=== PATIENT | female | born 1965 | race Caucasian/White ===

== ENCOUNTER 2021-01-11 17:04 | Outpatient (CLI) | payer BC, MEDICAID, SELFPAY ==
--- NOTE | ~2021-01-11 | MM_ITS ---
EXAMINATION: MM screening [facility] BI w [facility] HISTORY: Screening mammogram TECHNIQUE: Craniocaudal and mediolateral oblique 3-D tomosynthesis images were obtained and synthetic 2-D images were generated. CAD analysis was submitted and interpreted. COMPARISON: 09/22/2018, 09/07/2018 BREAST PARENCHYMAL COMPOSITION: There are scattered areas of fibroglandular density. FINDINGS: There is no evidence of suspicious mass, calcification, or architectural distortion to sugg est malignancy in either breast. There has been no suspicious interval change. IMPRESSION: 1. No mammographic evidence of malignancy. 2. Recommend routine screening mammography in one year. BI-RADS Category 1: Negative Reviewed, dictated and finalized at location A.
== END 2021-01-11 17:05 | disposition home or self-care (01) ==
PROVIDERS: PCP Family Medicine
DX: Z12.31 Encounter for screening mammogram for malignant neoplasm of breast (principal)
CPT/HCPCS: 77063; 77067

== ENCOUNTER → 2021-04-27 07:59 | Outpatient (CLI) | payer BC, MEDICAID, SELFPAY ==
[2021-04-27 19:27] LABS: SARS-CoV-2 RNA PCR Positive
== END ==
PROVIDERS: PCP Family Medicine; Visit Provider Family Medicine
DX: U07.1 COVID-19 (principal)
CPT/HCPCS: C9803; U0003; U0005

== ENCOUNTER 2021-04-29 22:29 | Inpatient (IN) | payer BC, MEDICAID, SELFPAY ==
--- NOTE | ~2021-04-29 | CT_ITS ---
EXAMINATION: CTA chest PE protocol EXAM DATE: 04/30/2021 00:46 INDICATION: COVID positive shortness of breath elevated d dimer. TECHNIQUE: Spiral CTA of the chest (pulmonary arteries) was performed with 100 cc Omnipaque 350 intr avenous contrast injection. Images were acquired during the pulmonary arterial phase. Coronal maxi mum intensity projection 3D-reconstructions were created by the technologist on dedicated workstation . Axial, coronal and sagittal reformatted images were reviewed. The dose-length product (DLP) for t his examination was 415.26 mGy-cm. The exposure was tailored according to patient size (auto mA exp osure control), and iterative reconstruction (ASIR) was used as additional dose reduction technique. There is no prior study for comparison. FINDINGS: There are no pulmonary emboli in the 1st through 3rd order (central and interlobar) pulmon [place] arteries. Some loss of attenuation in the segmental pulmonary arteries due to respiratory motion , but no intraluminal filling defects suspected. No thoracic aortic dissection. Scattered bilatera l groundglass opacities and basilar atelectasis. Appearance is consistent with COVID pneumonia. Ther e are no pleural or pericardial effusions. Tracheobronchial tree is patent. There is no mediastin al, hilar or axillary lymphadenopathy. There is no pneumothorax. Heart normal in size. No evide nce of coronary arterial calcification. Liver cysts. There is mild thoracic spondylosis without ost eoblastic or osteolytic lesions identified. IMPRESSION: 1. Limited segmental evaluation, but no pulmonary emboli are suspected. 2. Moderate right, small to moderate left airspace disease consistent with COVID pneumonia. Reviewed, dictated and finalized at location B. FARMER IMPRESSION: 1. Limited segmental evaluation, but no pulmonary emboli are suspected. 2. Moderate right, small to moderate left airspace disease consistent with COV ID pneumonia.
--- NOTE | ~2021-04-29 | XR_ITS ---
EXAMINATION: XR chest 1V portable DATE: 04/29/2021 23:04 INDICATION: COVID positive with shortness of breath TECHNIQUE: frontal view of the chest was obtained. COMPARISON: Chest radiograph dated 06/22/2010 FINDINGS: Mild airspace opacities scattered throughout both lungs relatively sparing the left upper lung zone w hich could represent atelectasis and/or pneumonia. No pleural effusion or pneumothorax. The cardiomed iastinal silhouette is normal. IMPRESSION: 1. Mild opacities scattered throughout both lungs consistent with atelectasis and/or pneumonia. Reviewed, dictated and finalized at location A. ASSET MANAGER IMPRESSION: 1. Mild opacities scattered throughout both lungs consistent with atelectasis a nd/or pneumonia.
[2021-04-29 22:35] VITALS: BP 123/80; PULSE 99; RESP 17; TEMP 36.9; O2SAT 93
[2021-04-29 22:43] VITALS: O2SAT 93
--- NOTE | 2021-04-29 22:47 | ECG_ITS ---
Measurements Intervals [place] Rate: 97 P: 50 [place]: 130 QRS: 21 QRSD: 82 T: -43 QT: 315 QTc: 401 Interpretive Statements SINUS RHYTHM LOW QRS VOLTAGE IN PRECORDIAL LEADS ST-T WAVE ABNORMALITY IN ANTEROLAT/INF LEADS- CONSIDER ISCHEMIA ABNORMAL ECG Electronically Signed On 04-30-2021 6:02:28 [employer]ACELET FORM COVERER by Jim Toney D.O.
[2021-04-29] MEDS: ALBUTEROL SULFATE (*SP) INHALER 2 PUFF INHALATION (22:55)
[2021-04-29] MEDS: ONDANSETRON INJ 4 MG/2 ML VIAL IV PUSH (23:17)
[2021-04-29] MEDS: KETOROLAC 30 MG/ML VIAL (*BKC) 15 MG IV PUSH (23:17)
[2021-04-29] MEDS: SODIUM CHLORIDE 0.9% IV 1,000 ML 999 ML IV CONT (23:17)
[2021-04-29 23:32] LABS: Basophils Percent Auto 0.1 % (0.2-1.2); Eosinophils Percent Auto 0.1 % (0-4.4); Hematocrit 43.1 % (37.0-47.0); Hemoglobin 13.7 g/dL (12.0-15.0); Immature Granulocyte Absolute 0.03 K/mm3 (0.00-0.031); Immature Granulocyte Percent A 0.4 % (0-0.5); Mean Corpuscular HGB Conc 31.8 g/dl (32-36); Mean Corpuscular Volume 88.1 fl (80-100); Mean Platelet Volume 9.3 fl (7.4-10.4); Monocytes Absolute Auto 0.3 K/mm3 (0.1-0.6); Monocytes Percent Auto 3.2 % (2.6-8.5); Neutrophils Percent Auto 82.2 % (45.5-73.1); Platelet Count Result 186 k/mm3 (150-375); Red Blood Count 4.89 M/mm3 (4.2-5.4); Red Cell Distribution Width 15.1 % (11.5-14.5); White Blood Count 8.6 K/mm3 (4.5-10.0)
[2021-04-29 23:42] LABS: Prothrombin Time 13.5 Seconds (11.1-14.7)
[2021-04-29 23:43] LABS: Partial Thromboplastin Time 25.2 SECONDS (22.3-36.8)
[2021-04-29 23:45] LABS: D Dimer 1.04 ug/mL (<0.48)
[2021-04-29 23:47] LABS: Lactic Acid Reflex 0.9 mmol/L (0.7-2.1)
[2021-04-29 23:48] LABS: Alanine Aminotransferase 20 U/L (4-35); Alkaline Phosphatase 66 U/L (38-126); Anion Gap 8 mmol/L (8-16); Aspartate Amino Transferase 32 U/L (14-36); Bilirubin,Total 0.4 mg/dL (0.2-1.3); Blood Urea Nitrogen 11 mg/dL (7-17); Calcium 8.3 mg/dL (8.4-10.2); Carbon Dioxide 27 mmol/L (22-30); Chloride 100 mmol/L (98-107); Estimated Glomerular Filt Rate > 60; Glucose 123 mg/dL (65-110); Potassium 3.1 mmol/L (3.4-5.0); Sodium 135 mmol/L (137-145)
[2021-04-30] VITALS (30 sets, daily range): BP systolic 103–125; BP diastolic 55–71; PULSE 73–97; RESP 14–20; TEMP 36.4–36.9; O2SAT 92–100
[2021-04-30 00:39] LABS: Troponin I < 0.012 ng/mL (0.000-0.034)
[2021-04-30] MEDS: DEXAMETHASONE SOD PHOS INJ 4 MG/ML VIAL IV PUSH (00:48)
--- NOTE | 2021-04-30 00:49 | ED.GENADULT ---
HPI - General Adult General Chief complaint: Chest Pain Stated complaint: SOB DIFF BREATHING, COVID+ Time Seen by Provider: 04/29/21 22:41 History of Present Illness HPI narrative: Patient 56-year-old female presents the emergency department with chief complaint of shortness of breath body aches and generalized malaise. The patient reports she was diagnosed with being Covid positive on the 10th after a swab. Patient reports that she has been having symptoms for about a week patient reports she is unvaccinated patient states that she feels short of breath is worse with ambulation and improved with rest. The patient was found to be 87% by EMS Related Data Allergies Allergy/AdvReac Type Severity Reaction Status Date / Time Penicillins Allergy Severe HIVES, Verified 04/29/21 22:43 RASH, DIFFICULTY BREATHING fentanyl Allergy Unknown ITCHING, Verified 04/29/21 22:43 DIFFICULTY BREATHING Review of Systems Review of Systems: A 10 system review of systems was completed on the patient and is negative except for what is stated in the HPI. Nursing and ancillary documentation was reviewed. Exam Narrative: GENERAL: Well-appearing, well-nourished, and in no acute distress. HEAD: Normocephalic, atraumatic. EYES: PERRLA and EOMI. ENT: Nares clear, no rhinorrhea or epistaxis. Mucous membranes moist. NECK: Supple. CHEST: Clear to auscultation. No respiratory distress. HEART: Regular rate and rhythm. No murmur heard. Normal peripheral pulses. ABDOMEN: Soft, nontender, nondistended, normal active bowel sounds. EXTREMITIES: Normal range of motion. No edema. SKIN: Warm, dry, no rash. NEURO: No focal deficits. Alert and oriented x3. PSYCH: Normal mood and affect. Course Course Emergency Course: EKG is sinus rhythm rate [address] elevation [address] ST depression of approximately 1 mm Chest x-ray shows diffuse patchy infiltrates consistent with Covid pneumonia CT PE protocol was ordered given the elevated D-dimer and hypoxia from COVID-19 The patient on ambulation is hypoxic with a saturation of 87% off of oxygen. Patient is currently requiring nasal cannula oxygen Vital Signs Vital signs: Vital Signs Temperature 36.9 C 04/29/21 22:35 Pulse Rate 99 04/29/21 22:35 Respiratory Rate 17 04/29/21 22:35 Blood Pressure 123/80 04/29/21 22:35 Pulse Oximetry 93 04/29/21 22:35 Temperature 36.9 C 04/29/21 22:35 Pulse Rate 99 04/29/21 22:35 Respiratory Rate 17 04/29/21 22:35 Blood Pressure 123/80 04/29/21 22:35 Pulse Oximetry 93 04/29/21 22:43 Medical Decision Making Vital Signs Vital Signs: Vital Signs Temperature 36.9 C 04/29/21 22:35 Pulse Rate 99 04/29/21 22:35 Respiratory Rate 17 04/29/21 22:35 Blood Pressure 123/80 04/29/21 22:35 Pulse Oximetry 93 04/29/21 22:35 Temperature 36.9 C 04/29/21 22:35 Pulse Rate 99 04/29/21 22:35 Respiratory Rate 17 04/29/21 22:35 Blood Pressure 123/80 04/29/21 22:35 Pulse Oximetry 93 04/29/21 22:43 Lab Data Result diagrams: 04/29/21 23:27 04/29/21 23:27 Labs: Lab Results 04/29/21 04/29/21 04/29/21 Range/Units 23:27 23:27 23:27 WBC 8.6 (4.5-10.0) K/mm3 RBC 4.89 (4.2-5.4) M/mm3 Hgb 13.7 (12.0-15.0) g/dL Hct 43.1 (37.0-47.0) % MCV 88.1 (80-100) fl MCH 28.0 (26-34) pg MCHC 31.8 L (32-36) g/dl RDW 15.1 H (11.5-14.5) % Plt Count 186 (150-375) k/mm3 MPV 9.3 (7.4-10.4) fl Immature Gran % (Auto) 0.4 (0-0.5) % Neut % (Auto) 82.2 H (45.5-73.1) % Lymph % (Auto) 14.0 L (18.3-44.2) % Benzie % (Auto) 3.2 (2.6-8.5) % Eos % (Auto) 0.1 (0-4.4) % Baso % (Auto) 0.1 L (0.2-1.2) % Lymph # (Auto) 1.20 (0.9-3.2) K/mm3 Benzie # (Auto) 0.3 (0.1-0.6) K/mm3 Eos # (Auto) 0.0 (0-0.3) K/mm3 Baso # (Auto) 0.0 (0.0-0.1) K/mm3 Abs Immat Gran (auto) 0.03 (0.00-0.031) K/mm3 Absolute Neuts (auto)
--- NOTE | 2021-04-30 00:53 | PM.IMHP ---
H&P: HPI History of Present Illness Date/Time: 04/30/21 00:53 Chief Complaint: SHORTNESS OF BREATH Narrative: This is a 56-year-old female with known significant past medical history. Patient presents to the emergency room today due to worsening shortness of breath she had been tested for COVID-19 3 days prior where she went to drive through by [facility] and she was called to confirm positives results. Patient had been feeling very ill with generalized body aches and pains ,chills ,loss of taste and smell, poor appetite, initially has some nausea, vomiting and diarrhea that has subsided, patient had also cough initially dry and now has turned out productive of greenish-colored phlegm scanty amount. Preliminary workup was significant for chest x-ray with diffuse bilateral infiltrates and CTA with infiltrates as well no pulmonary embolism was found. In emergency room patient was found to be desaturating with minimal exertion and decision was made to admit the patient for further evaluation, management and treatment. Review of Systems Review of Systems: Generalized body aches and pains my general malaise poor appetite loss of sense of taste and smell shortness of breath cough productive of green phlegm. Constitutional: Constitutional: Reports chills, Reports fatigue, Reports fever(s), Reports malaise and Reports poor appetite Eyes: Eyes: Denies change in vision ENT: Denies dysphagia, Denies vertigo, Denies dizziness, Denies nasal congestion, Denies nasal discharge, Denies nasal obstruction and Denies odynophagia Cardiovascular: Cardiovascular: Denies claudication, Denies leg edema, Denies lightheadedness, Denies radiating jaw, neck or arm pain, Denies palpitations, Denies dyspnea, Denies dyspnea on exertion and Denies orthopnea Respiratory: Respiratory: Reports change in phlegm color, Reports cough, Reports dyspnea and Denies wheezing Gastrointestinal: Gastrointestinal: Reports abdominal pain, Denies dyspepsia, Denies heartburn, Reports diarrhea, Reports nausea and Reports vomiting Genitourinary: Genitourinary: Denies dysuria and Denies flank pain Musculoskeletal: Musculoskeletal: Reports myalgias Integumentary/Breasts: Skin/Breast: Denies rash Neurologic: Denies focal weakness and Denies Sensory deficit (Neuro) Psychiatric: Psychiatric: Reports no additional psychiatric complaints and Reports as per HPI Endocrine: Endocrine: Denies polyphagia, Denies polydipsia and Denies palpitations Hematologic/Lymphatic: Hematologic/Lymphatic: Reports no additional hematologic/lymphatic complaints and Reports as per HPI Allergic/Immunologic: Allergic/Immunologic: Reports no additional allergic/immunologic complaints and Reports as per HPI Meds Home Medications and Allergies Allergies Allergy/AdvReac Type Severity Reaction Status Date / Time Penicillins Allergy Severe HIVES, Verified 04/29/21 22:43 RASH, DIFFICULTY BREATHING fentanyl Allergy Unknown ITCHING, Verified 04/29/21 22:43 DIFFICULTY BREATHING Vital Signs Vital Signs - 24 hr 04/29/21 22:35 04/29/21 22:43 Temperature 98.4 F Pulse Rate 99 Respiratory Rate 17 Blood Pressure 123/80 Pulse Oximetry 93 93 Exam Narrative: Patient is laying in gurney Const: General: cooperative, comfortable, no acute distress, well developed, alert, awake and ill appearing acutely Nutritional Appearance: overweight Orientation/consciousness: patient oriented x3 HENMT: Head: normal to inspection, normocephalic and atraumatic Ears: hearing grossly normal bilaterally General nose exam: Normal external nose present Face and sinus: normal facial exam Mouth: Yes Normal oral and palatal mucosa present Eyes: General: appearance normal, both eyes and all related structures Alignment and Position: alignment normal Sclera: sclerae normal Pupils: Equal, round and reactive pupils present EOM: EOMs intact bilaterally Neck: Neck: normal visual inspection, ful
[2021-04-30] MEDS: REMDESIVIR 200 MG/NS 250 ML 200 MG/250 ML BAG 250 MG IVPB (05:49)
[2021-04-30 05:53] LABS: Alanine Aminotransferase 19 U/L (4-35); Estimated Glomerular Filt Rate > 60; Prothrombin Time 13.4 Seconds (11.1-14.7)
[2021-04-30] MEDS: ENOXAPARIN 40 MG/0.4 ML SYRINGE SUB-Q (07:52)
[2021-04-30] MEDS: DEXAMETHASONE SOD PHOS INJ 4 MG/ML VIAL 6 MG IV PUSH (07:52)
--- NOTE | 2021-04-30 09:04 | PC.NURSE ---
Pt arrived to room 321 from ER per w/c.
[2021-04-30 09:24] LABS: Hematocrit 42.1 % (37.0-47.0); Hemoglobin 13.3 g/dL (12.0-15.0); Mean Corpuscular HGB Conc 31.6 g/dl (32-36); Mean Corpuscular Hemoglobin 28.2 pg (26-34); Mean Corpuscular Volume 89.2 fl (80-100); Mean Platelet Volume 9.6 fl (7.4-10.4); Platelet Count Result 195 k/mm3 (150-375); Red Blood Count 4.72 M/mm3 (4.2-5.4); Red Cell Distribution Width 15.1 % (11.5-14.5); White Blood Count 6.3 K/mm3 (4.5-10.0)
[2021-04-30 09:36] LABS: Alanine Aminotransferase 19 U/L (4-35); Albumin Level 3.8 g/dL (3.5-5.1); Alkaline Phosphatase 64 U/L (38-126); Anion Gap 7 mmol/L (8-16); Aspartate Amino Transferase 31 U/L (14-36); Bilirubin,Total 0.3 mg/dL (0.2-1.3); Blood Urea Nitrogen 10 mg/dL (7-17); Calcium 8.3 mg/dL (8.4-10.2); Carbon Dioxide 29 mmol/L (22-30); Chloride 101 mmol/L (98-107); Estimated Glomerular Filt Rate > 60; Glucose 133 mg/dL (65-110); Potassium 3.7 mmol/L (3.4-5.0); Sodium 137 mmol/L (137-145)
[2021-04-30] MEDS: ALBUTEROL SULFATE (*SP) AEROSOL 1 PUFF 4 PUFF INHALATION (09:58)
--- NOTE | 2021-04-30 10:19 | PM.IMPN ---
Progress Note: A&P Assessment and Plan (1) Respiratory failure: Qualifiers: Chronicity: acute Respiratory failure complication: hypoxia Qualified Code(s): J96.01 - Acute respiratory failure with hypoxia Code(s): J96.90 - Respiratory failure, unspecified, unspecified whether with hypoxia or hypercapnia Status: Acute Assessment and Plan: Acute respiratory failure with hypoxia secondary to COVID-19 pneumonia. Noted to have O2 sat of 86% on room air, requiring up to 6 L per nasal cannula initially. CTA negative for PE with bilateral airspace disease consistent with COVID-19 pneumonia Continue supplemental O2 as needed with goal saturation 92% or above. Currently requiring 2 L per nasal cannula and maintaining adequate O2 sats. Wean to goal. Treatment for COVID-19 as described below (2) Pneumonia due to COVID-19 virus: Code(s): U07.1 - COVID-19; J12.82 - Pneumonia due to coronavirus disease 2018 Status: Acute Assessment and Plan: Symptom onset 04/23/2021, positive test on 04/27/2021. CXR shows scattered bilateral opacities consistent with pneumonia. Continue dexamethasone and remdesivir, started on 04/29/2021. Dose #2 today. Monitor liver enzymes while on remdesivir. ALT is within normal limits. Supplemental O2 as described above with O2 sats 92% or above. At this time, will discontinue azithromycin as source of infection is viral in etiology, concomitant bacterial pneumonia is not suspected at this time. Supportive care to include bronchodilators, expectorants, antipyretics, incentive spirometry Trend inflammatory markers She has not been vaccinated for COVID-19 Continue isolation precautions (3) Asthma: Code(s): J45.909 - Unspecified asthma, uncomplicated Status: Acute Assessment and Plan: Reports that asthma is well controlled. Continue Advair Albuterol available as needed Subjective Date/time seen: 04/30/21 10:19 Interval history: Date of service: 04/30/2021 Bobbi Weber is a 56-year-old female with a history of asthma and depression who is seen in follow-up for COVID-19 pneumonia. She tested positive [facility]through service on 04/27/2021, stated her symptoms started on 04/23/2021. She has been having worsened shortness of breath and endorses dyspnea on exertion. She also complains of of productive cough. Denies wheezing. No chest pain or palpitations. She had been having nausea and vomiting, this has improved today. She states that she was able to tolerate her breakfast today and this is the first meal she has been able to keep down. She denies diarrhea. No abdominal pain but reports sore abdominal muscles related to frequent coughing. Denies urinary symptoms. Denies dizziness, lightheadedness, weakness. Denies leg pain or swelling. Review of Systems Review of Systems: All systems reviewed & are unremarkable except as noted in HPI and below Exam Narrative: Ms. Weber is a well-nourished, well-appearing 56-year-old female who is lying semi recumbent in bed. She appears comfortable and is in NARD. Neuro: awake, alert and oriented x4, speech clear, no focal neuro deficits noted HEENMT: normocephalic, atraumatic, EOMI, sclerae anicteric, moist oral mucosa Neck: supple, no lymphadenopathy Respiratory: Diminished breath sounds bilaterally without rales, rhonchi, or wheezes, nonlabored breathing, able to speak in complete sentences Cardio: regular rate, regular rhythm with S1-S2 Abdomen: nondistended, normoactive bowel sounds, soft, nontender to palpation Extremities: no edema, erythema, or tenderness to palpation, DP pulses 2+ bilaterally Skin: no rashes or lesions, warm and dry Psych: appropriate mood and affect, judgment and insight intact Objective Data Vital Signs Vital Signs: Vital Signs - 24 hr 04/29/21 22:35 04/29/21 22:43 04/30/21 00:24 Temperature 98.4 F Pulse Rate 99 87 Respiratory Rate 17 18 B
[2021-04-30] MEDS: ACETAMINOPHEN 325 MG TABLET 650 MG PO (11:24)
--- NOTE | 2021-04-30 12:37 | PHAR ---
Addendum entered by Willam Em [facility] 05/01/21 13:02: PHARMACY VERIFIED NEW BOTTLE BROUGHT IN OF DESVENLAFAXINE SUCCINATE 50 MG TABLET EXTENDED RELEASE 24 HR Original Note: The patient's home med of Desvenlafaxine Succinate 50 mg Tablet Extended Release 24 Hr has been verified. One tablet only in prescription bottle.
[2021-04-30] MEDS: ALBUTEROL SULFATE (*SP) AEROSOL 1 PUFF 2 PUFF INHALATION ×2 (15:43→20:39)
[2021-04-30] MEDS: REMDESIVIR 100 MG/NS 250 ML 100 MG/250 ML BAG 250 MG IVPB (23:26)
[2021-05-01] VITALS (8 sets, daily range): BP systolic 100–114; BP diastolic 46–67; PULSE 70–76; RESP 16–20; TEMP 36.1–37.3; O2SAT 93–98
[2021-05-01] MEDS: ACETAMINOPHEN 325 MG TABLET 650 MG PO (01:55)
[2021-05-01] MEDS: ALBUTEROL SULFATE (*SP) AEROSOL 1 PUFF 2 PUFF INHALATION ×3 (02:12→20:13)
[2021-05-01 03:32] LABS: Troponin I < 0.012 ng/mL (0.000-0.034)
[2021-05-01 06:26] LABS: Hematocrit 38.7 % (37.0-47.0); Hemoglobin 12.5 g/dL (12.0-15.0); Mean Corpuscular HGB Conc 32.3 g/dl (32-36); Mean Corpuscular Hemoglobin 28.3 pg (26-34); Mean Corpuscular Volume 87.8 fl (80-100); Mean Platelet Volume 9.5 fl (7.4-10.4); Platelet Count Result 208 k/mm3 (150-375); Red Blood Count 4.41 M/mm3 (4.2-5.4); Red Cell Distribution Width 15.1 % (11.5-14.5); White Blood Count 9.2 K/mm3 (4.5-10.0)
[2021-05-01 06:44] LABS: Alanine Aminotransferase 20 U/L (4-35); Albumin Level 3.5 g/dL (3.5-5.1); Alkaline Phosphatase 55 U/L (38-126); Anion Gap 6 mmol/L (8-16); Aspartate Amino Transferase 30 U/L (14-36); Bilirubin,Total 0.2 mg/dL (0.2-1.3); Blood Urea Nitrogen 14 mg/dL (7-17); CRP 3.9 mg/dL (<1.0); Calcium 8.6 mg/dL (8.4-10.2); Carbon Dioxide 31 mmol/L (22-30); Chloride 101 mmol/L (98-107); Estimated Glomerular Filt Rate > 60; Glucose 101 mg/dL (65-110); Lactate Dehydrogenase 579 U/L (313-618); Potassium 3.5 mmol/L (3.4-5.0); Sodium 138 mmol/L (137-145)
[2021-05-01 07:07] LABS: INR 1.2; Prothrombin Time 15.2 Seconds (11.1-14.7)
[2021-05-01] MEDS: FLUTICASONE/SALMETEROL 45-21 MCG INHALER 1 PUFF 2 PUFF INHALATION (08:36)
[2021-05-01] MEDS: DEXAMETHASONE SOD PHOS INJ 4 MG/ML VIAL 6 MG IV PUSH (10:07)
[2021-05-01] MEDS: ENOXAPARIN 40 MG/0.4 ML SYRINGE SUB-Q (10:08)
--- NOTE | 2021-05-01 11:25 | PM.IMPN ---
Progress Note: A&P Assessment and Plan (1) Respiratory failure: Qualifiers: Chronicity: acute Respiratory failure complication: hypoxia Qualified Code(s): J96.01 - Acute respiratory failure with hypoxia Code(s): J96.90 - Respiratory failure, unspecified, unspecified whether with hypoxia or hypercapnia Status: Acute Assessment and Plan: Acute respiratory failure with hypoxia secondary to COVID-19 pneumonia. Noted to have O2 sat of 86% on room air, requiring up to 6 L per nasal cannula initially. CTA negative for PE with bilateral airspace disease consistent with COVID-19 pneumonia Continue supplemental O2 as needed with goal saturation 92% or above. Currently requiring 2 L per nasal cannula and maintaining adequate O2 sats. Wean to goal. Treatment for COVID-19 as described below Will need home O2 eval prior to discharge (2) Pneumonia due to COVID-19 virus: Code(s): U07.1 - COVID-19; J12.82 - Pneumonia due to coronavirus disease 2018 Status: Acute Assessment and Plan: Symptom onset 04/23/2021, positive test on 04/27/2021. CXR shows scattered bilateral opacities consistent with pneumonia. Continue dexamethasone and remdesivir, started on 04/29/2021. Dose #3 today. Monitor liver enzymes while on remdesivir. ALT is within normal limits (20). Supplemental O2 as described above with O2 sats 92% or above. Supportive care to include bronchodilators, expectorants, antipyretics, incentive spirometry Trend inflammatory markers She has not been vaccinated for COVID-19 Continue isolation precautions (3) Asthma: Code(s): J45.909 - Unspecified asthma, uncomplicated Status: Acute Assessment and Plan: Reports that asthma is well controlled. Continue Advair Albuterol available as needed Subjective Date/time seen: 05/01/21 11:25 Interval history: Date of service: 05/01/2021 Bobbi Weber is a 56-year-old female with a history of asthma and depression who is seen in follow-up for COVID-19 pneumonia. She is feeling about the same today. Continues to endorse some mild shortness of breath and persistent cough. She complains of low back pain that seems to be worsened due to lying in bed. She also has had some episodes of feeling anxious today, which she relates to being in the hospital. She denies nausea or vomiting. She is eating well. She would like to take a shower today. She reports some abdominal discomfort which she says is because she has not had a bowel movement. She feels like she needs to go today, and states that if she is not able to go, she would like to take some medication to help her have a bowel movement. She denies dizziness or lightheadedness. She is able to get up and ambulate independently. Review of Systems Review of Systems: All systems reviewed & are unremarkable except as noted in HPI and below Exam Narrative: Ms. Weber is a well-nourished, well-appearing 56-year-old female who is lying semi recumbent in bed. She appears comfortable and is in NARD. Neuro: awake, alert and oriented x4, speech clear, no focal neuro deficits noted HEENMT: normocephalic, atraumatic, EOMI, sclerae anicteric, moist oral mucosa Neck: supple, no lymphadenopathy Respiratory: Diminished breath sounds bilaterally without crackles, wheezes, rhonchi, nonlabored breathing, able to speak in complete sentences Cardio: regular rate, regular rhythm with S1-S2 Abdomen: nondistended, normoactive bowel sounds, soft, nontender to palpation Extremities: no edema, erythema, or tenderness to palpation, DP pulses 2+ bilaterally Skin: no rashes or lesions, warm and dry Psych: appropriate mood and affect, judgment and insight intact Objective Data Vital Signs Vital Signs: Vital Signs - 24 hr 04/30/21 11:48 04/30/21 15:44 04/30/21 15:52 Temperature 98.1 F 98.1 F Pulse Rate 78 78 81 Respiratory Rate 14 18 14 Blood Pressure 115/62 119/58 L Puls
[2021-05-01] MEDS: REMDESIVIR 100 MG/NS 250 ML 100 MG/250 ML BAG 250 MG IVPB (21:02)
[2021-05-02] VITALS (9 sets, daily range): BP systolic 105–127; BP diastolic 55–71; PULSE 64–82; RESP 16–18; TEMP 36.3–37.8; O2SAT 93–95
[2021-05-02] MEDS: ALBUTEROL SULFATE (*SP) AEROSOL 1 PUFF 2 PUFF INHALATION ×4 (01:55→20:39)
[2021-05-02 08:36] LABS: Hematocrit 38.8 % (37.0-47.0); Hemoglobin 12.2 g/dL (12.0-15.0); Mean Corpuscular HGB Conc 31.4 g/dl (32-36); Mean Corpuscular Hemoglobin 27.6 pg (26-34); Mean Corpuscular Volume 87.8 fl (80-100); Mean Platelet Volume 9.6 fl (7.4-10.4); Platelet Count Result 233 k/mm3 (150-375); Red Blood Count 4.42 M/mm3 (4.2-5.4); Red Cell Distribution Width 15.3 % (11.5-14.5); White Blood Count 5.9 K/mm3 (4.5-10.0)
[2021-05-02 08:44] LABS: INR 1.2; Prothrombin Time 14.8 Seconds (11.1-14.7)
[2021-05-02 09:09] LABS: Alanine Aminotransferase 18 U/L (4-35); Albumin Level 3.3 g/dL (3.5-5.1); Alkaline Phosphatase 50 U/L (38-126); Anion Gap 5 mmol/L (8-16); Aspartate Amino Transferase 30 U/L (14-36); Bilirubin,Total 0.3 mg/dL (0.2-1.3); Blood Urea Nitrogen 13 mg/dL (7-17); CRP 2.1 mg/dL (<1.0); Calcium 8.3 mg/dL (8.4-10.2); Carbon Dioxide 31 mmol/L (22-30); Chloride 102 mmol/L (98-107); Estimated Glomerular Filt Rate > 60; Glucose 86 mg/dL (65-110); Potassium 3.3 mmol/L (3.4-5.0); Sodium 138 mmol/L (137-145)
[2021-05-02] MEDS: ENOXAPARIN 40 MG/0.4 ML SYRINGE SUB-Q (09:47)
[2021-05-02] MEDS: DEXAMETHASONE SOD PHOS INJ 4 MG/ML VIAL 6 MG IV PUSH (09:47)
[2021-05-02] MEDS: POTASSIUM CHLORIDE 20 MEQ TABLET 40 MEQ PO (09:48)
[2021-05-02] MEDS: ACETAMINOPHEN 325 MG TABLET 650 MG PO (13:37)
--- NOTE | 2021-05-02 17:18 | PM.IMPN ---
Progress Note: A&P Assessment and Plan (1) Respiratory failure: Qualifiers: Chronicity: acute Respiratory failure complication: hypoxia Qualified Code(s): J96.01 - Acute respiratory failure with hypoxia Code(s): J96.90 - Respiratory failure, unspecified, unspecified whether with hypoxia or hypercapnia Status: Acute Assessment and Plan: Acute respiratory failure with hypoxia secondary to COVID-19 pneumonia. Noted to have O2 sat of 86% on room air, requiring up to 6 L per nasal cannula initially. CTA negative for PE with bilateral airspace disease consistent with COVID-19 pneumonia Continue supplemental O2 as needed with goal saturation 92% or above. Currently requiring 1 L per nasal cannula and maintaining adequate O2 sats. Wean to goal. Treatment for COVID-19 as described below Will need home O2 eval prior to discharge (2) Pneumonia due to COVID-19 virus: Code(s): U07.1 - COVID-19; J12.82 - Pneumonia due to coronavirus disease 2018 Status: Acute Assessment and Plan: Symptom onset 04/23/2021, positive test on 04/27/2021. CXR shows scattered bilateral opacities consistent with pneumonia. Continue dexamethasone and remdesivir, started on 04/29/2021. Dose #4 today. Monitor liver enzymes while on remdesivir. ALT is within normal limits (18). Supplemental O2 as described above with O2 sats 92% or above. Supportive care to include bronchodilators, expectorants, antipyretics, incentive spirometry Trend inflammatory markers She has not been vaccinated for COVID-19 Continue isolation precautions (3) Asthma: Code(s): J45.909 - Unspecified asthma, uncomplicated Status: Acute Assessment and Plan: Reports that asthma is well controlled. Continue Advair Albuterol available as needed (4) Constipation: Code(s): K59.00 - Constipation, unspecified Status: Acute Assessment and Plan: -colace and miralax prn Subjective Date/time seen: 05/02/21 17:18 Interval history: Date of service: 05/01/2021 Bobbi Weber is a 56-year-old female with a history of asthma and depression who is seen in follow-up for COVID-19 pneumonia. She is feeling a little better today. She is down to 1L NC and denies sob. Continues with productive cough w/ clear and yellow phlegm. Also reports constipation. No cp. Review of Systems Review of Systems: General: Denies fevers, chills Eyes: Denies vision changes or eye pain ENT: Denies nasal congestion or sore throat Respiratory: + cough, denies shortness of breath Cardiovascular: Denies chest pain, palpitations, or lower extremity edema Gastrointestinal: Denies abdominal pain, vomiting, or diarrhea, +constipation Genitourinary: Denies dysuria or urinary frequency Musculoskeletal: + back pain Neurological: Denies headache, paraesthesias, or motor weakness Integumentary: Denies rash Exam Narrative: Ms. Weber is a well-nourished, well-appearing 56-year-old female who is lying semi recumbent in bed. She appears comfortable and is in NARD. Neuro: awake, alert and oriented x4, speech clear, no focal neuro deficits noted HEENMT: normocephalic, atraumatic, EOMI, sclerae anicteric, moist oral mucosa Neck: supple, no lymphadenopathy Respiratory: Diminished breath sounds bilaterally without crackles, wheezes, rhonchi, nonlabored breathing, able to speak in complete sentences Cardio: regular rate, regular rhythm with S1-S2 Abdomen: nondistended, normoactive bowel sounds, soft, nontender to palpation Extremities: no edema, erythema, or tenderness to palpation, DP pulses 2+ bilaterally Skin: no rashes or lesions, warm and dry Psych: appropriate mood and affect, judgment and insight intact Objective Data Vital Signs Vital Signs: Vital Signs - 24 hr 05/01/21 20:00 05/02/21 00:00 05/02/21 04:00 Temperature 98.1 F 97.8 F 97.3 F L Pulse Rate 70 66 66 Respiratory Rate 16 18 18 Blood Pre
[2021-05-02] MEDS: FLUTICASONE/SALMETEROL 45-21 MCG INHALER 1 PUFF 2 PUFF INHALATION (20:39)
[2021-05-02] MEDS: REMDESIVIR 100 MG/NS 250 ML 100 MG/250 ML BAG 250 MG IVPB (21:28)
[2021-05-02] MEDS: DOCUSATE SODIUM 100 MG CAPSULE PO (21:29)
[2021-05-03] VITALS (9 sets, daily range): BP systolic 103–126; BP diastolic 56–71; PULSE 63–77; RESP 16–18; TEMP 36.1–36.7; O2SAT 93–96
[2021-05-03] MEDS: ALBUTEROL SULFATE (*SP) AEROSOL 1 PUFF 2 PUFF INHALATION ×5 (03:25→21:30)
[2021-05-03] MEDS: FLUTICASONE/SALMETEROL 45-21 MCG INHALER 1 PUFF 2 PUFF INHALATION (08:21)
[2021-05-03 08:45] LABS: Basophils Percent Auto 0.2 % (0.2-1.2); Eosinophils Percent Auto 0.2 % (0-4.4); Hematocrit 38.2 % (37.0-47.0); Hemoglobin 12.1 g/dL (12.0-15.0); Immature Granulocyte Absolute 0.03 K/mm3 (0.00-0.031); Immature Granulocyte Percent A 0.5 % (0-0.5); Lymphocytes Absolute Auto 2.64 K/mm3 (0.9-3.2); Lymphocytes Percent Auto 40.4 % (18.3-44.2); Mean Corpuscular HGB Conc 31.7 g/dl (32-36); Mean Corpuscular Hemoglobin 27.8 pg (26-34); Mean Corpuscular Volume 87.6 fl (80-100); Mean Platelet Volume 9.1 fl (7.4-10.4); Monocytes Absolute Auto 0.4 K/mm3 (0.1-0.6); Monocytes Percent Auto 6.6 % (2.6-8.5); Neutrophils Absolute Auto 3.4 K/mm3 (1.3-6.7); Neutrophils Percent Auto 52.1 % (45.5-73.1); Platelet Count Result 261 k/mm3 (150-375); Red Blood Count 4.36 M/mm3 (4.2-5.4); Red Cell Distribution Width 14.9 % (11.5-14.5); White Blood Count 6.5 K/mm3 (4.5-10.0)
[2021-05-03 09:02] LABS: INR 1.3; Prothrombin Time 15.8 Seconds (11.1-14.7)
[2021-05-03 09:06] LABS: Alanine Aminotransferase 21 U/L (4-35); Albumin Level 3.3 g/dL (3.5-5.1); Alkaline Phosphatase 49 U/L (38-126); Anion Gap 3 mmol/L (8-16); Aspartate Amino Transferase 27 U/L (14-36); Bilirubin,Total 0.2 mg/dL (0.2-1.3); Blood Urea Nitrogen 12 mg/dL (7-17); CRP 1.1 mg/dL (<1.0); Calcium 8.3 mg/dL (8.4-10.2); Carbon Dioxide 31 mmol/L (22-30); Chloride 103 mmol/L (98-107); Estimated Glomerular Filt Rate > 60; Glucose 103 mg/dL (65-110); Potassium 3.1 mmol/L (3.4-5.0); Sodium 137 mmol/L (137-145)
[2021-05-03] MEDS: DOCUSATE SODIUM 100 MG CAPSULE PO (10:21)
[2021-05-03] MEDS: DEXAMETHASONE SOD PHOS INJ 4 MG/ML VIAL 6 MG IV PUSH (10:21)
[2021-05-03] MEDS: ENOXAPARIN 40 MG/0.4 ML SYRINGE SUB-Q (10:22)
--- NOTE | 2021-05-03 14:58 | PM.IMPN ---
Progress Note: A&P Assessment and Plan (1) Respiratory failure: Qualifiers: Chronicity: acute Respiratory failure complication: hypoxia Qualified Code(s): J96.01 - Acute respiratory failure with hypoxia Code(s): J96.90 - Respiratory failure, unspecified, unspecified whether with hypoxia or hypercapnia Status: Acute Assessment and Plan: Acute respiratory failure with hypoxia secondary to COVID-19 pneumonia. Noted to have O2 sat of 86% on room air, requiring up to 6 L per nasal cannula initially. CTA negative for PE with bilateral airspace disease consistent with COVID-19 pneumonia Continue supplemental O2 as needed with goal saturation 92% or above. Currently requiring 1 L per nasal cannula and maintaining adequate O2 sats. Wean to goal. Treatment for COVID-19 as described below Will need home O2 eval prior to discharge (2) Pneumonia due to COVID-19 virus: Code(s): U07.1 - COVID-19; J12.82 - Pneumonia due to coronavirus disease 2018 Status: Acute Assessment and Plan: Symptom onset 04/23/2021, positive test on 04/27/2021. CXR shows scattered bilateral opacities consistent with pneumonia. Completed remdesivir, started on 04/29/2021. Dose #5 today. Continue dexamethasone Supplemental O2 as described above with O2 sats 92% or above. Supportive care to include bronchodilators, expectorants, antipyretics, incentive spirometry Trend inflammatory markers She has not been vaccinated for COVID-19 Continue isolation precautions (3) Asthma: Code(s): J45.909 - Unspecified asthma, uncomplicated Status: Acute Assessment and Plan: Reports that asthma is well controlled. Continue Advair Albuterol available as needed (4) Constipation: Code(s): K59.00 - Constipation, unspecified Status: Acute Assessment and Plan: -colace and miralax prn Subjective Date/time seen: 05/03/21 14:58 Interval history: Date of service: 05/01/2021 Bobbi Weber is a 56-year-old female with a history of asthma and depression who is seen in follow-up for COVID-19 pneumonia. She is feeling pretty good today. She is down to 1L NC and denies sob. Continues with productive cough w/ clear and yellow phlegm, some brown tinge. Talking seems to spark her coughing fits. Also reports constipation. No cp. Review of Systems Review of Systems: General: Denies fevers, chills Eyes: Denies vision changes or eye pain ENT: Denies nasal congestion or sore throat Respiratory: + cough, denies shortness of breath Cardiovascular: Denies chest pain, palpitations, or lower extremity edema Gastrointestinal: Denies abdominal pain, vomiting, or diarrhea, +constipation Genitourinary: Denies dysuria or urinary frequency Musculoskeletal: + back pain Neurological: Denies headache, paraesthesias, or motor weakness Integumentary: Denies rash Psychiatric: +anxiety Exam Narrative: Ms. Weber is a well-nourished, well-appearing 56-year-old female who is lying semi recumbent in bed. She appears comfortable and is in NARD. Neuro: awake, alert and oriented x4, speech clear, no focal neuro deficits noted HEENT: normocephalic, atraumatic, sclerae anicteric, moist oral mucosa Neck: supple, no lymphadenopathy Respiratory: Diminished breath sounds bilaterally without crackles, wheezes, rhonchi, nonlabored breathing, able to speak in complete sentences Cardio: regular rate, regular rhythm with S1-S2 Abdomen: nondistended, normoactive bowel sounds, soft, nontender to palpation Extremities: no edema, erythema, or tenderness to palpation, DP pulses 2+ bilaterally Skin: no rashes or lesions, warm and dry Psych: appropriate mood and affect, judgment and insight intact Objective Data Vital Signs Vital Signs: Vital Signs - 24 hr 05/02/21 16:00 05/02/21 20:00 05/03/21 00:00 Temperature 97.9 F 98.4 F 97.8 F Pulse Rate 82 69 66 Respiratory Rate 18 18 18 Blood Press
[2021-05-04] VITALS (7 sets, daily range): BP systolic 95–120; BP diastolic 50–68; PULSE 66–85; RESP 14–22; TEMP 36.2–36.6; O2SAT 94–96
[2021-05-04] MEDS: REMDESIVIR 100 MG/NS 250 ML 100 MG/250 ML BAG 250 MG IVPB (02:18)
[2021-05-04] MEDS: DOCUSATE SODIUM 100 MG CAPSULE PO ×3 (02:20→20:19)
[2021-05-04 06:55] LABS: Basophils Percent Auto 0.1 % (0.2-1.2); Eosinophils Percent Auto 0.4 % (0-4.4); Hematocrit 38.3 % (37.0-47.0); Hemoglobin 12.1 g/dL (12.0-15.0); Immature Granulocyte Absolute 0.07 K/mm3 (0.00-0.031); Immature Granulocyte Percent A 0.8 % (0-0.5); Lymphocytes Absolute Auto 2.83 K/mm3 (0.9-3.2); Lymphocytes Percent Auto 33.5 % (18.3-44.2); Mean Corpuscular HGB Conc 31.6 g/dl (32-36); Mean Corpuscular Hemoglobin 27.6 pg (26-34); Mean Corpuscular Volume 87.4 fl (80-100); Mean Platelet Volume 9.4 fl (7.4-10.4); Monocytes Absolute Auto 0.6 K/mm3 (0.1-0.6); Monocytes Percent Auto 6.5 % (2.6-8.5); Neutrophils Percent Auto 58.7 % (45.5-73.1); Platelet Count Result 296 k/mm3 (150-375); Red Blood Count 4.38 M/mm3 (4.2-5.4); Red Cell Distribution Width 14.8 % (11.5-14.5); White Blood Count 8.5 K/mm3 (4.5-10.0)
[2021-05-04 06:56] LABS: INR 1.2; Prothrombin Time 15.3 Seconds (11.1-14.7)
[2021-05-04 06:57] LABS: Alanine Aminotransferase 20 U/L (4-35); Albumin Level 3.5 g/dL (3.5-5.1); Alkaline Phosphatase 53 U/L (38-126); Anion Gap 4 mmol/L (8-16); Aspartate Amino Transferase 23 U/L (14-36); Bilirubin,Total 0.2 mg/dL (0.2-1.3); Blood Urea Nitrogen 11 mg/dL (7-17); CRP 1.3 mg/dL (<1.0); Calcium 8.6 mg/dL (8.4-10.2); Carbon Dioxide 32 mmol/L (22-30); Chloride 99 mmol/L (98-107); Estimated Glomerular Filt Rate > 60; Glucose 111 mg/dL (65-110); Potassium 3.3 mmol/L (3.4-5.0); Sodium 135 mmol/L (137-145)
[2021-05-04] MEDS: FLUTICASONE/SALMETEROL 45-21 MCG INHALER 1 PUFF 2 PUFF INHALATION ×2 (08:44→19:22)
[2021-05-04] MEDS: ALBUTEROL SULFATE (*SP) AEROSOL 1 PUFF 2 PUFF INHALATION ×3 (08:44→19:22)
[2021-05-04] MEDS: ENOXAPARIN 40 MG/0.4 ML SYRINGE SUB-Q (09:36)
[2021-05-04] MEDS: DEXAMETHASONE SOD PHOS INJ 4 MG/ML VIAL 6 MG IV PUSH (09:36)
--- NOTE | 2021-05-04 17:09 | PM.IMPN ---
Progress Note: A&P Assessment and Plan (1) Respiratory failure: Qualifiers: Chronicity: acute Respiratory failure complication: hypoxia Qualified Code(s): J96.01 - Acute respiratory failure with hypoxia Code(s): J96.90 - Respiratory failure, unspecified, unspecified whether with hypoxia or hypercapnia Status: Acute Assessment and Plan: Acute respiratory failure with hypoxia secondary to COVID-19 pneumonia. CTA negative for PE with bilateral airspace disease consistent with COVID-19 pneumonia, pt is on 1 liter of oxygen continue to wean, ambulatory walk test tomorrow and discharge in 1-2 days time continue iv steroids (2) Pneumonia due to COVID-19 virus: Code(s): U07.1 - COVID-19; J12.82 - Pneumonia due to coronavirus disease 2018 Status: Acute Assessment and Plan: Symptom onset 04/23/2021, positive test on 04/27/2021. CXR shows scattered bilateral opacities consistent with pneumonia. Completed remdesivir, started on 04/29/2021. Continue dexamethasone Supplemental O2 as described above with O2 sats 92% or above. Supportive care to include bronchodilators, expectorants, antipyretics, incentive spirometry (3) Asthma: Code(s): J45.909 - Unspecified asthma, uncomplicated Status: Acute Assessment and Plan: Reports that asthma is well controlled. Continue Advair and advair (4) Constipation: Code(s): K59.00 - Constipation, unspecified Status: Acute Assessment and Plan: -colace and miralax prn Subjective Date/time seen: 05/04/21 17:09 Interval history: Bobbi Weber is a 56-year-old female with a history of asthma and depression who is seen in follow-up for COVID-19 pneumonia. Pt is down to 1 liter of oxygen feeling much better Review of Systems Review of Systems: All systems reviewed & are unremarkable except as noted in HPI and below Exam Const: General: cooperative and healthy appearing; No in distress Nutritional Appearance: overweight Orientation/consciousness: oriented to person HENMT: Head: normal to inspection Resp: Effort & Inspection: no respiratory distress Auscultation: no rhonchi and no wheezes Cardio: Rate: regular rate Rhythm: regular rhythm GI: Inspection: normal to inspection GI Palp: No abdominal tenderness, No Guarding due to palpation present (GI) and No Hepatomegaly present Auscultation: normal bowel sounds Neuro: General: oriented to person Objective Data Vital Signs Vital Signs: Vital Signs - 24 hr 05/03/21 19:49 05/03/21 22:51 05/04/21 02:46 Temperature 36.1 C L 36.3 C L 36.4 C L Pulse Rate 66 77 70 Respiratory Rate 16 18 17 Blood Pressure 103/56 L 111/65 103/59 L Pulse Oximetry 96 96 95 05/04/21 08:00 05/04/21 08:44 05/04/21 09:45 Temperature 36.3 C L Pulse Rate 66 Respiratory Rate 14 Blood Pressure 105/60 Pulse Oximetry 95 94 96 05/04/21 12:00 05/04/21 15:57 Temperature 36.6 C 36.4 C Pulse Rate 70 85 Respiratory Rate 14 20 Blood Pressure 95/50 L 120/68 Pulse Oximetry 96 94 Intake/Output Intake/Output: Intake & Output 05/01/21 05/02/21 05/03/21 05/04/21 23:59 23:59 23:59 23:59 Intake Total 2740 2550 1620 1370 Output Total 1050 1200 1200 Balance 1690 8451 261 1294 Meds/Results Medications: Active Medications Generic Name Dose Route Start Last Admin Trade Name Freq PRN Reason Stop Dose Admin Acetaminophen 650 mg 04/30/21 10:36 05/02/21 13:37 Acetaminophen 325 Mg Tablet PO 650 mg Q4H PRN Administration Headache, fever, pain 1-3 Albuterol 2 puff 04/30/21 14:00 05/04/21 15:48 Albuterol Sulfate (*Sp) Aerosol 1 Puff INHALATION 2 puff Q6HRT LARON Administration Dexamethasone Sodium Phosphate 6 mg 04/30/21 09:00 05/04/21 09:36 Dexamethasone Sod Phos Inj 4 Mg/Ml Vial IV PUSH 05/09/21 09:01 6 mg DAILY LARON Administration Docusate Sodium 100 mg 05/02/21 21:00 05/04/21 09:36 D
[2021-05-05] VITALS (9 sets, daily range): BP systolic 103–117; BP diastolic 57–68; PULSE 63–80; RESP 14–22; TEMP 36.1–36.9; O2SAT 93–96
[2021-05-05] MEDS: ALBUTEROL SULFATE (*SP) AEROSOL 1 PUFF 2 PUFF INHALATION ×4 (02:25→20:32)
[2021-05-05 07:04] LABS: Anion Gap 4 mmol/L (8-16); Blood Urea Nitrogen 14 mg/dL (7-17); Calcium 8.6 mg/dL (8.4-10.2); Carbon Dioxide 31 mmol/L (22-30); Chloride 99 mmol/L (98-107); Estimated Glomerular Filt Rate > 60; Glucose 89 mg/dL (65-110); Potassium 3.6 mmol/L (3.4-5.0); Sodium 134 mmol/L (137-145)
[2021-05-05] MEDS: FLUTICASONE/SALMETEROL 45-21 MCG INHALER 1 PUFF 2 PUFF INHALATION ×3 (07:55→20:32)
[2021-05-05] MEDS: polyethylene glycoL 3350 17 GM POWD.PACK PO (09:55)
[2021-05-05] MEDS: DOCUSATE SODIUM 100 MG CAPSULE PO ×2 (09:55→20:49)
[2021-05-05] MEDS: ENOXAPARIN 40 MG/0.4 ML SYRINGE SUB-Q (09:55)
[2021-05-05] MEDS: DEXAMETHASONE SOD PHOS INJ 4 MG/ML VIAL 6 MG IV PUSH (09:56)
[2021-05-05] MEDS: POTASSIUM CHLORIDE 20 MEQ PACKET (FOR LIQUID) 40 MEQ PO ×2 (13:37→20:49)
--- NOTE | 2021-05-05 15:26 | PM.IMPN ---
Progress Note: A&P Assessment and Plan (1) Respiratory failure: Qualifiers: Chronicity: acute Respiratory failure complication: hypoxia Qualified Code(s): J96.01 - Acute respiratory failure with hypoxia Code(s): J96.90 - Respiratory failure, unspecified, unspecified whether with hypoxia or hypercapnia Status: Acute Assessment and Plan: -Acute respiratory failure with hypoxia secondary to COVID-19 pneumonia. Noted to have O2 sat of 86% on room air on arrival, requiring up to 6 L per nasal cannula. -CTA negative for PE with bilateral airspace disease consistent with COVID-19 pneumonia -Continue supplemental O2 as needed, today she is on room air -Treatment for COVID-19 as described below -Home O2 eval tomorrow (2) Pneumonia due to COVID-19 virus: Code(s): U07.1 - COVID-19; J12.82 - Pneumonia due to coronavirus disease 2018 Status: Acute Assessment and Plan: Symptom onset 04/23/2021, positive test on 04/27/2021. CXR shows scattered bilateral opacities consistent with pneumonia. Completed remdesivir, started on 04/29/2021. Continue dexamethasone Supplemental O2 as described above with O2 sats 92% or above. Supportive care to include bronchodilators, expectorants, antipyretics, incentive spirometry On room air today, home o2 eval tomorrow (3) Asthma: Code(s): J45.909 - Unspecified asthma, uncomplicated Status: Acute Assessment and Plan: Reports that asthma is well controlled. Continue Advair and advair (4) Constipation: Code(s): K59.00 - Constipation, unspecified Status: Acute Assessment and Plan: -colace and miralax prn -added dulcolax suppository Subjective Date/time seen: 05/05/21 15:26 Interval history: Bobbi Weber is a 56-year-old female with a history of asthma and depression who is seen in follow-up for COVID-19 pneumonia. Pt is now on room air and feels good. Still having mild intermittent cough. Denies sob. Still has not had a bowel movement x1 week despite miralax and colace. Some abdominal discomfort but no significant pain. No nausea or vomiting. Review of Systems Review of Systems: General: Denies fevers, chills Eyes: Denies vision changes or eye pain ENT: Denies nasal congestion or sore throat Respiratory: + cough, denies shortness of breath Cardiovascular: Denies chest pain, palpitations, or lower extremity edema Gastrointestinal: Denies abdominal pain, vomiting, or diarrhea, +constipation Genitourinary: Denies dysuria or urinary frequency Musculoskeletal: + back pain Neurological: Denies headache, paraesthesias, or motor weakness Integumentary: Denies rash Psychiatric: +anxiety Exam Narrative: Ms. Weber is a well-nourished, well-appearing 56-year-old female who is lying semi recumbent in bed. She appears comfortable and is in NARD. Neuro: awake, alert and oriented x4, speech clear, no focal neuro deficits noted HEENT: normocephalic, atraumatic, sclerae anicteric, moist oral mucosa Neck: supple, no lymphadenopathy Respiratory: Lungs CTA bilaterally, no wheezing Cardio: regular rate, regular rhythm with S1-S2 Abdomen: nondistended, normoactive bowel sounds, soft, nontender to palpation Extremities: no edema, erythema, or tenderness to palpation, DP pulses 2+ bilaterally Skin: no rashes or lesions, warm and dry Psych: appropriate mood and affect, judgment and insight intact Objective Data Vital Signs Vital Signs: Vital Signs - 24 hr 05/04/21 15:57 05/04/21 20:00 05/05/21 00:00 Temperature 97.6 F 97.1 F L 96.9 F L Pulse Rate 85 73 66 Respiratory Rate 20 22 H 20 Blood Pressure 120/68 117/65 114/68 Pulse Oximetry 94 96 96 05/05/21 04:00 05/05/21 07:56 05/05/21 08:00 Temperature 97.1 F L Pulse Rate 63 65 Respiratory Rate 20 14 Blood Pressure 116/67 Pulse Oximetry 96 93 93 05/05/21 08:25 05/05/21 12:56 Temperature 97.9 F 98.4 F Pulse Ra
[2021-05-06] VITALS (9 sets, daily range): BP systolic 104–125; BP diastolic 61–72; PULSE 69–83; RESP 16–20; TEMP 36.1–36.4; O2SAT 90–96
[2021-05-06] MEDS: ALBUTEROL SULFATE (*SP) AEROSOL 1 PUFF 2 PUFF INHALATION ×3 (02:27→13:55)
[2021-05-06] MEDS: ACETAMINOPHEN 325 MG TABLET 650 MG PO (04:42)
[2021-05-06 07:53] LABS: Basophils Percent Auto 0.3 % (0.2-1.2); Eosinophils Absolute Auto 0.2 K/mm3 (0-0.3); Eosinophils Percent Auto 2.1 % (0-4.4); Hematocrit 38.8 % (37.0-47.0); Hemoglobin 12.4 g/dL (12.0-15.0); Immature Granulocyte Absolute 0.18 K/mm3 (0.00-0.031); Immature Granulocyte Percent A 1.9 % (0-0.5); Lymphocytes Absolute Auto 2.86 K/mm3 (0.9-3.2); Lymphocytes Percent Auto 30.5 % (18.3-44.2); Mean Corpuscular Hemoglobin 27.7 pg (26-34); Mean Corpuscular Volume 86.8 fl (80-100); Mean Platelet Volume 9.1 fl (7.4-10.4); Monocytes Absolute Auto 0.6 K/mm3 (0.1-0.6); Monocytes Percent Auto 5.9 % (2.6-8.5); Neutrophils Absolute Auto 5.6 K/mm3 (1.3-6.7); Neutrophils Percent Auto 59.3 % (45.5-73.1); Platelet Count Result 389 k/mm3 (150-375); Red Blood Count 4.47 M/mm3 (4.2-5.4); Red Cell Distribution Width 15.1 % (11.5-14.5); White Blood Count 9.4 K/mm3 (4.5-10.0)
[2021-05-06 08:06] LABS: Alanine Aminotransferase 19 U/L (4-35); Albumin Level 3.5 g/dL (3.5-5.1); Alkaline Phosphatase 54 U/L (38-126); Anion Gap 4 mmol/L (8-16); Aspartate Amino Transferase 19 U/L (14-36); Bilirubin,Total 0.3 mg/dL (0.2-1.3); Blood Urea Nitrogen 13 mg/dL (7-17); Calcium 8.9 mg/dL (8.4-10.2); Carbon Dioxide 30 mmol/L (22-30); Chloride 99 mmol/L (98-107); Estimated Glomerular Filt Rate > 60; Glucose 88 mg/dL (65-110); Lactate Dehydrogenase 465 U/L (313-618); Potassium 3.8 mmol/L (3.4-5.0); Sodium 133 mmol/L (137-145)
[2021-05-06] MEDS: ENOXAPARIN 40 MG/0.4 ML SYRINGE SUB-Q (10:00)
[2021-05-06] MEDS: POTASSIUM CHLORIDE 20 MEQ PACKET (FOR LIQUID) 40 MEQ PO (10:00)
[2021-05-06] MEDS: BISACODYL 10 MG SUPPOSITORY RECTAL (10:00)
[2021-05-06] MEDS: DOCUSATE SODIUM 100 MG CAPSULE PO (10:00)
[2021-05-06] MEDS: DEXAMETHASONE SOD PHOS INJ 4 MG/ML VIAL 6 MG IV PUSH (10:01)
[2021-05-06] MEDS: polyethylene glycoL 3350 17 GM POWD.PACK PO (10:01)
--- NOTE | 2021-05-06 12:26 | PM.IMPN ---
Progress Note: A&P Assessment and Plan (1) Respiratory failure: Qualifiers: Chronicity: acute Respiratory failure complication: hypoxia Qualified Code(s): J96.01 - Acute respiratory failure with hypoxia Code(s): J96.90 - Respiratory failure, unspecified, unspecified whether with hypoxia or hypercapnia Status: Acute Assessment and Plan: -Acute respiratory failure with hypoxia secondary to COVID-19 pneumonia. Noted to have O2 sat of 86% on room air on arrival, requiring up to 6 L per nasal cannula. -CTA negative for PE with bilateral airspace disease consistent with COVID-19 pneumonia -Continue supplemental O2 as needed, today she is on room air -Treatment for COVID-19 as described below -Home O2 eval today (2) Pneumonia due to COVID-19 virus: Code(s): U07.1 - COVID-19; J12.82 - Pneumonia due to coronavirus disease 2018 Status: Acute Assessment and Plan: Symptom onset 04/23/2021, positive test on 04/27/2021. CXR shows scattered bilateral opacities consistent with pneumonia. Completed remdesivir, started on 04/29/2021. Continue dexamethasone Supplemental O2 as described above with O2 sats 92% or above. Supportive care to include bronchodilators, expectorants, antipyretics, incentive spirometry On room air today, home o2 eval tomorrow (3) Asthma: Code(s): J45.909 - Unspecified asthma, uncomplicated Status: Acute Assessment and Plan: Reports that asthma is well controlled. Continue Advair and advair (4) Constipation: Code(s): K59.00 - Constipation, unspecified Status: Acute Assessment and Plan: -colace and miralax prn -added dulcolax suppository Subjective Date/time seen: 05/06/21 12:27 Interval history: Bobbi Weber is a 56-year-old female with a history of asthma and depression who is seen in follow-up for COVID-19 pneumonia. Pt is now on room air and feels good. Still having mild intermittent cough. Denies sob. Still has not had a bowel movement in more than a week despite miralax and colace. Complains of abdominal discomfort and nausea due to constipation. No vomiting. Review of Systems Review of Systems: General: Denies fevers, chills Eyes: Denies vision changes or eye pain ENT: Denies nasal congestion or sore throat Respiratory: + cough, denies shortness of breath Cardiovascular: Denies chest pain, palpitations, or lower extremity edema Gastrointestinal: + abdominal pain, denies vomiting or diarrhea, +constipation Genitourinary: Denies dysuria or urinary frequency Musculoskeletal: Denies back pain Neurological: Denies headache, paraesthesias, or motor weakness Integumentary: Denies rash Exam Narrative: General: No acute distress, non toxic appearing Eyes: PERRL, no scleral icterus HEENT: NCAT, external ears normal, MMM Respiratory: No respiratory distress, Lungs CTA bilaterally, no wheezing Cardiovascular: RRR, no murmur Abdominal: Soft, nontender, non distended, no rebound or guarding Musculoskeletal: Moves all 4 extremities, no edema Neurological: A/Ox3, speech normal, no facial asymmetry Skin: Warm, dry, no rashes Psychiatric: Normal affect, normal mood Objective Data Vital Signs Vital Signs: Vital Signs - 24 hr 05/05/21 12:56 05/05/21 15:59 05/05/21 20:00 Temperature 98.4 F 98.1 F 97.3 F L Pulse Rate 73 69 80 Respiratory Rate 14 14 22 H Blood Pressure 103/57 L 105/61 117/66 Pulse Oximetry 93 95 95 05/05/21 21:28 05/06/21 00:00 05/06/21 02:27 Temperature 97.2 F L Pulse Rate 80 69 82 Respiratory Rate 16 16 16 Blood Pressure 116/68 Pulse Oximetry 95 05/06/21 04:00 05/06/21 08:00 Temperature 97.3 F L 96.9 F L Pulse Rate 70 80 Respiratory Rate 20 16 Blood Pressure 115/70 104/61 Pulse Oximetry 95 95 Intake/Output Intake/Output: Intake & Output 05/03/21 05/04/21 05/05/21 05/06/21 23:59 23:59 23:59 23:59 Intake Total 7602 1940 2
--- NOTE | 2021-05-06 14:09 | PM.DS ---
DS: Admitting Diagnosis Discharge Date 05/06/21 Admitting Diagnosis covid DS: Discharge Diagnosis Discharge Diagnosis (1) Respiratory failure: Qualifiers: Chronicity: acute Respiratory failure complication: hypoxia Qualified Code(s): J96.01 - Acute respiratory failure with hypoxia Code(s): J96.90 - Respiratory failure, unspecified, unspecified whether with hypoxia or hypercapnia Status: Acute Assessment and Plan: -Acute respiratory failure with hypoxia secondary to COVID-19 pneumonia. Noted to have O2 sat of 86% on room air on arrival, requiring up to 6 L per nasal cannula. -CTA negative for PE with bilateral airspace disease consistent with COVID-19 pneumonia -Continue supplemental O2 as needed, she is on RA x24 hours -Treatment for COVID-19 as described below -Home O2 eval completed she does not qualify (2) Pneumonia due to COVID-19 virus: Code(s): U07.1 - COVID-19; J12.82 - Pneumonia due to coronavirus disease 2018 Status: Acute Assessment and Plan: Symptom onset 04/23/2021, positive test on 04/27/2021. CXR shows scattered bilateral opacities consistent with pneumonia. Completed remdesivir, started on 04/29/2021. Dexamethasone IV x 7 days, will send with oral x 3 additional days Supplemental O2 as described above with O2 sats 92% or above. Supportive care included bronchodilators, expectorants, antipyretics, incentive spirometry On room air today, home o2 eval completed and she does not qualify vitals stable. pt stable for discharge. (3) Asthma: Code(s): J45.909 - Unspecified asthma, uncomplicated Status: Acute Assessment and Plan: Reports that asthma is well controlled. Continued Advair and advair (4) Constipation: Code(s): K59.00 - Constipation, unspecified Status: Acute Assessment and Plan: -colace and miralax prn -added dulcolax suppository -had large BM today, feeling much better DS: Summary Hospital Course Reason for hospitalization: Bobbi Weber is a 56-year-old female with a history of asthma and depression who was admitted for COVID-19 pneumonia. Please see HPI for further details. Hospital Course: Please see above for details of hospital course. Status at Discharge Cognitive/behavioral status at discharge: stable Functional status at discharge: independent ambulation Overall status at discharge: patient is progressing back to baseline Time Spent with Patient Time attestation: Total time spent providing and/or coordinating discharge services: 32 Time spent: Greater than 30 minutes Exam Narrative: General: No acute distress, non toxic appearing Eyes: PERRL, no scleral icterus HEENT: NCAT, external ears normal, MMM Respiratory: No respiratory distress, Lungs CTA bilaterally, no wheezing Cardiovascular: RRR, no murmur Abdominal: Soft, nontender, non distended, no rebound or guarding Musculoskeletal: Moves all 4 extremities, no edema Neurological: A/Ox3, speech normal, no facial asymmetry Skin: Warm, dry, no rashes Psychiatric: Normal affect, normal mood DS: Data Data Completed and Pending Labs on day of discharge: Labs from last 24 hours 05/06/21 05/06/21 05/06/21 07:14 07:14 07:14 WBC 9.4 RBC 4.47 Hgb 12.4 Hct 38.8 MCV 86.8 MCH 27.7 MCHC 32.0 RDW 15.1 H Plt Count 389 H MPV 9.1 Immature Gran % (Auto) 1.9 H Neut % (Auto) 59.3 Lymph % (Auto) 30.5 Yancey % (Auto) 5.9 Eos % (Auto) 2.1 Baso % (Auto) 0.3 Lymph # (Auto) 2.86 Yancey # (Auto) 0.6 Eos # (Auto) 0.2 Baso # (Auto) 0.0 Abs Immat Gran (auto) 0.18 H Absolute Neuts (auto) 5.6 Absolute Nucleated RBC 0.0 Nucleated RBC % 0.0 Sodium 133 L Potassium 3.8 Chloride 99 Carbon Dioxide 30 Anion Gap 4 L BUN 13 Creatinine 0.50 L Estim Creat Clear Calc Not Reportable Estimated GFR > 60 Glucose 88
--- NOTE | 2021-05-06 14:25 | PCRCNOTE ---
patient does not qualify for home oxygen
== END 2021-05-06 16:15 | disposition home or self-care (01) | DRG 177 ==
LOC: ANHED 04-30 00:57 → ANH3MEDSUR 04-30 02:48
PROVIDERS: Family Medicine; Physician Assistant; Admitting Provider Internal Medicine; Emergency Provider Emergency Medicine; PCP Family Medicine; Visit Provider Physician Assistant
DX: U07.1 COVID-19 (principal); J12.82 Pneumonia due to coronavirus disease 2019; J96.01 Acute respiratory failure with hypoxia; J45.909 Unspecified asthma, uncomplicated; K59.00 Constipation, unspecified; Z23 Encounter for immunization; Z79.899 Other long term (current) drug therapy
CPT/HCPCS: 36415; 71045; 71275; 80048; 80053; 82565; 82728; 83605; 83615; 84460; 84484; 85025; 85027; 85380; 85610; 85730; 86140; 90471; 90653; 93005; 94618; 94640; 96361; 96365; 96366; 96372; 96375; 96376; 99285; A9270; G0008; G0378; J0456; J1100; J1650; J1885; J2405; J7030; Q9967

== ENCOUNTER → 2021-05-16 02:06 | Outpatient (CLI) | payer BC, MEDICAID, SELFPAY ==
[2021-05-16 21:06] LABS: SARS-CoV-2 RNA PCR Positive
== END ==
PROVIDERS: PCP Family Medicine; Visit Provider Family Medicine
DX: U07.1 COVID-19 (principal)
CPT/HCPCS: C9803; U0003; U0005

== ENCOUNTER → 2021-06-02 02:10 | Outpatient (CLI) | payer BC, MEDICAID, SELFPAY ==
[2021-06-03 15:56] LABS: SARS-CoV-2 RNA PCR Negative
== END ==
PROVIDERS: PCP Family Medicine; Visit Provider Family Medicine
DX: R68.89 Other general symptoms and signs (principal); Z20.822 Contact with and (suspected) exposure to COVID-19
CPT/HCPCS: C9803; U0003; U0005

== ENCOUNTER → 2021-10-04 08:53 | Outpatient (CLI) | payer BC, MEDICAID, SELFPAY ==
--- NOTE | ~2021-10-04 | MR_ITS ---
EXAMINATION: MR ankle LT wo con DATE: 10/04/2021 09:21 INDICATION: Left ankle pain. Posterior tibial tendinitis. TECHNIQUE: Magnetic resonance imaging (MRI) of the left ankle was performed without intravenous contr ast. Sequences included sagittal, coronal, and axial proton-density weighted fast spin echo without a nd with fat saturation. COMPARISON: None. FINDINGS: Medial ankle ligaments: Deep and superficial deltoid ligaments as well as the spring ligament are normal. Lateral ankle ligaments: The anterior and posterior inferior tibiofibular ligaments are normal. The calcaneofibular and poste rior talofibular ligaments are normal. Significant attenuation of the anterior talofibular ligament w ithout surrounding edema likely sequela of chronic sprain. Tendons: Mild distal Achilles tendinosis without discrete tear. Minimal Achilles peritendinitis. Small amount of fluid in the peroneal tendon sheath surrounding the normal-appearing peroneus longus and brevis te ndons consistent with mild tenosynovitis. The tibialis anterior and extensor hallucis longus and exte nsor digitorum longus tendons are normal. Additional small amount of fluid within the tendon sheaths consistent with mild tenosynovitis extending along the normal-appearing tibialis posterior and flexor digitorum longus tendons. Flexor hallucis longus tendons are normal. Plantar fascia: Postoperative changes at the medial aspect of the hindfoot likely related to release of the distal ta rsal tunnel which includes partial fasciotomy of the medial abductor hallucis longus component of the plantar aponeurosis. There is small plantar calcaneal spur and mild thickening and minimal increased signal at the central component of the plantar aponeurosis consistent with mild chronic enthesopathy . Bones/other: Bone alignment is normal. Normal marrow signal throughout with no fracture or pathologic marrow repla cing process. Joint spaces are normal. Fluid: Physiologic amount fluid in the joint space. No abnormal fluid collections aside from the previous no duc small amount of fluid consistent with tenosynovitis along a few of the flexor tendon sheaths. IMPRESSION: 1. Mild tenosynovitis along the otherwise normal tibialis posterior, flexor digitorum longus and juvencio neus longus and brevis tendons. 2. Mild distal Achilles tendinosis with minimal peritendinitis. 3. Postoperative change of prior partial tall release with partial fasciotomy of the abductor halluci s muscle and medial component of the plantar aponeurosis Reviewed, dictated and finalized at location A. IMPRESSION: 1. Mild tenosynovitis along the otherwise normal tibialis posterior, flexor dig itorum longus and peroneus longus and brevis tendons. 2. Mild distal Achilles tendinosis with minimal peritendinitis. 3. Postoperative change of prior partial tall release with partial fasciotomy o f the abductor hallucis muscle and medial component of the plantar aponeurosis
== END ==
PROVIDERS: PCP Family Medicine; Visit Provider Podiatrist Foot & Ankle Surgery
DX: M76.822 Posterior tibial tendinitis, left leg (principal); M65.872 Other synovitis and tenosynovitis, left ankle and foot; M76.62 Achilles tendinitis, left leg
CPT/HCPCS: 73721

== ENCOUNTER → 2022-07-01 11:50 | Outpatient (CLI) | payer BC, MEDICAID, SELFPAY ==
--- NOTE | ~2022-07-01 | MM_ITS ---
EXAMINATION: MM screening tania BI w guera HISTORY: Screening mammogram TECHNIQUE: Craniocaudal and mediolateral oblique 3-D tomosynthesis images were obtained and synthetic 2-D images were generated. CAD analysis was submitted and interpreted. COMPARISON: 01/11/2021 bilateral screening mammogram 09/22/2018 bilateral diagnostic mammography and limited left breast ultrasound examination 09/07/2017 bilateral screening mammogram BREAST PARENCHYMAL COMPOSITION: There are scattered areas of fibroglandular density. FINDINGS: Stable circumscribed 3.7 x 6.4 mm opacity in the anterior lower outer left breast, benign i n mammographic appearance, stable since 09/07/2018. There is no evidence of suspicious mass, calcifica tion, or architectural distortion to suggest malignancy in either breast. There has been no suspiciou s interval change. IMPRESSION: 1. No mammographic evidence of malignancy. 2. Recommend routine screening mammography in one year. BI-RADS Category 2: Benign finding(s). Reviewed, dictated and finalized at location A. [employer]
== END ==
PROVIDERS: PCP Family Medicine; Visit Provider Nurse Practitioner Adult Health
DX: Z12.31 Encounter for screening mammogram for malignant neoplasm of breast (principal)
CPT/HCPCS: 77063; 77067

== ENCOUNTER 2022-07-03 13:36 | Outpatient (CLI) | payer BC, MEDICAID, SELFPAY ==
--- NOTE | 2022-07-03 16:56 | WPDPFTINT ---
PFT Procedure Performed PFT Procedure Performed Spirometry with Pre/Post Bronchodilator Plethysmography (Lung Vol) Diffusing Cap (DLCO) Flow Vol Loop PFT Interpretation This is a pulmonary function test with pre and post-bronchodilator spirometry, plethysmography and diffusing capacity. The test was performed and results interpreted in accordance with the 2019 and 2005 ATS/ERS Task Force guidelines respectively using the Global Lung Function Initiative-2012 reference equations. Patient demonstrated good effort and cooperation. Reproducibility criteria were met. The quality of the pre bronchodilator spirometry maneuver was Grade A and post bronchodilator spirometry maneuver was Grade A. Findings: Spirometry: there is decreased maximal expiratory airflow at all lung volumes with a concave expiratory flow tracing. The contour the inspiratory flow tracing is normal. The pre bronchodilator FVC is 2.27 L, 83% predicted. The pre bronchodilator FEV1 is 1.58 L, 72% predicted. The pre bronchodilator FEV1: FVC ratio 70%. The post bronchodilator FVC is 2.20 L, representing a 3% decrease. The post bronchodilator FEV1 is 1.63 L, representing a 3% increase. The post bronchodilator FEV1: FVC ratio 74%. Plethysmography: The total lung capacity is 4.71 L, 109% predicted. The functional residual capacity is 2.08 L, 87% predicted. The residual volume is 2.06 L, 124% predicted. The slow vital capacity is 2.65 L Diffusion capacity: The diffusing capacity unadjusted for hemoglobin and carboxyhemoglobin is 15.0, 75% predicted. The diffusing capacity adjusted for alveolar volume is 4.92 L, 104% predicted. Impression: The slow vital capacity is greater than forced vital capacity with decreased maximal expiratory airflow and a decreased FEV1. This is suggestive of small airways disease. There is no significant improvement after inhaling a single dose of albuterol. The lung volumes are normal. The diffusing capacity is normal. There are no prior studies for comparison
== END 2022-07-03 13:37 | disposition home or self-care (01) ==
PROVIDERS: PCP Family Medicine; Visit Provider Allergy & Immunology
DX: Z09 Encounter for follow-up examination after completed treatment for conditions other than malignant neoplasm (principal); R94.2 Abnormal results of pulmonary function studies
CPT/HCPCS: 94060; 94726; 94729

== ENCOUNTER 2023-12-16 14:47 | Outpatient (CLI) | payer OTHER, SELFPAY ==
--- NOTE | ~2023-12-16 | MM_ITS ---
EXAMINATION: MM screening tania BI w guera HISTORY: Screening TECHNIQUE: Craniocaudal and mediolateral oblique 3-D tomosynthesis images were obtained and synthetic 2-D images were generated. CAD analysis was submitted and interpreted. COMPARISON: Comparison to multiple prior studies sequentially, with oldest reviewed study dated 06/2018. BREAST PARENCHYMAL COMPOSITION: There are scattered areas of fibroglandular density. FINDINGS: Stable benign-appearing left breast mass. There is no evidence of suspicious mass, calcific ation, or architectural distortion to suggest malignancy in either breast. There has been no suspicio us interval change. IMPRESSION: 1. No mammographic evidence of malignancy. 2. Recommend routine screening mammography in one year. BI-RADS Category 2: Benign finding(s). Reviewed, dictated and finalized at location B.
== END 2023-12-16 14:48 | disposition home or self-care (01) ==
PROVIDERS: PCP Family Medicine; Visit Provider Family Medicine
DX: Z12.31 Encounter for screening mammogram for malignant neoplasm of breast (principal)
CPT/HCPCS: 77063; 77067

== ENCOUNTER 2024-12-10 10:27 | Outpatient (CLI) | payer MEDICARE, MEDICAID, SELFPAY ==
--- NOTE | ~2024-12-10 | DEXA_ITS ---
Bone Density Report Name: CARTER EATON Age: 59 Sex: Female Ethnicity: White Date of : 1965 Indication: postmenopausal; screening for osteoporosis; prior fracture; asthma or emphysema; hysterectomy; Referring Provider: UNKNOWN, UNKNOWN Study: Bone densitometry was performed. Exam Date: December 10, 2024 Accession number: [id number] Bone Density: Region BMD T-score Z-score Classification AP Spine(L1-L4) 1.197 1.4 2.7 Normal Femoral Neck (Left) 0.760 -0.8 0.4 Normal Total Hip (Left) 0.943 0.0 0.9 Normal Femoral Neck (Right) 0.691 -1.4 -0.2 Osteopenia Total Hip (Right) 0.962 0.2 1.0 Normal Total Hip Mean 0.953 0.1 1.0 Normal World Health Organization criteria for BMD impression classify patients as: Normal (T-score at or above -1.0), Osteopenia (T-score between -1.0 and -2.5), or Osteoporosis (T-score at or below -2.5). 10-year Fracture Risk(1): Major Osteoporotic Fracture 11% Hip Fracture 0.8% Reported Risk Factors: [place] (), Neck BMD=0.691, BMI=41.2, previous fracture (1) FRAX(R) Version 3.08. Fracture probability calculated for an untreated patient. Fracture probability may be lower if the patient has received treatment. Clinical Information Provided by Patient: Has had a low trauma fracture Has used the following medications: Vitamin D, Calcium Has the following medical conditions: Asthma or Emphysema, Hysterectomy Patient maximum height was 59 Menopause Age: 33 No regular weight bearing exercise Does not regularly consume dairy products Drinks caffeinated beverages Onset of menses at age 13 Number of children 0 Impression: The patient has low bone mass, based on the Right Femoral Neck T-score. The patient has an estimated ten-year risk of hip fracture of 0.8% and an estimated ten-year risk of major fracture of 11%, based on the WHO FRAX algorithm. The patient has risk factors, including: previous fracture. Discussion: BONE DENSITY IS LOW AT ONE OR MORE SKELETAL SITES. This patient's lowest T-score is low at one or more skeletal sites. It meets the World Health Organization's (WHO) criteria for ?low bone mass? (T-score between -1.0 and -2.5). The patient's 10-year risk of fracture as calculated by FRAX is less than the threshold where pharmacological therapy is recommended by the National Osteoporosis Foundation (NOF). However, all treatment decisions require clinical judgment and consideration of individual patient factors, including patient preferences, comorbidities, previous drug use, risk factors not captured in the FRAX model (e.g., frailty, falls, vitamin D deficiency, increased bone turnover, interval significant decline in bone density) and possible under or overestimation of fracture risk by FRAX. The patient should follow a healthful lifestyle (good nutrition with adequate calcium and vitamin D, and appropriate weight-bearing exercise). Follow-Up: Consider repeating this study in 2 to 3 years to reassess this patient's status, or sooner if there is some new clinical indication. Reported by: ROBERT on 12/10/2024 11:11:00 AM. Reviewed, dictated and finalized at location A.
--- OUTSIDE RECORDS SUMMARY | 2024-12-10 10:34 | XMS_ITS | Encounter Summary ---
Author Organization [employer] Address 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
--- OUTSIDE RECORDS SUMMARY | 2024-12-10 10:34 | XMS_ITS | Clinical Summary ---
Author Organization [facility] Address [address], [address] [address] Phone Care Team Providers Care Educational Recruiter Name Role Phone Edvin Burk MD Primary Care Provider [phone] Allergies Active Allergy Reactions Criticality Noted Date Comments Fentanyl Itching 03/30/2024 Penicillins Hives 03/30/2024 Medications Desvenlafaxine Succinate (Pristiq) 50 MG TABLET SR 24 HR Take 1 Tablet by mouth daily. Active HYDROcodone-vivek taminophen (NORCO) 5-325 MG Tablet Take 1 Tablet by mouth nightly as needed. Active Pseudoephedrine HCl (SUDAFED PO) Take 1 Tablet by mouth daily. Active MULTIPLE VITAMIN PO Take 1 Tablet by mouth daily. Active Ascorbic Acid (VITAMIN C PO) Take 1 Tablet by mouth daily. Active Fluticasone-Ume clidin-Vilant (Trelegy Ellipta) 200-62.5-25 MCG/ACT AEROSOL POWDER, BREATH ACTIVATED take 1 Puff by inhalation daily. Active ALBUTEROL SULFATE HFA IN take 2 Puffs by inhalation every 4 hours as needed. Active Active Problems No known active problems Family History Medical History Relation Name Comments Diabetes Father Stroke Father Cancer Mother ovarian and lora creatic Osteoarthritis Mother Stroke Paternal Grandmother Relation Name Status Comments Father Mother Paternal Grandmother Social History Tobacco Use Types Packs/Day Years Used Date Smoking Tobacco: Never Smokeless Tobacco: Never Tobacco Cessation:Counseling Given: Not Answered Alcohol Use Standard Drinks/Week Comments Never 0 (1 standard drink = 0.6 oz pur e alcohol) Comments Unknown Sex and Gender Information Value Date Recorded Sex Assigned at Not on file Legal Sex Female 11:16 AM CDT Gender Identity Not on file Sexual Orientation Not on file Last Filed Vital Signs Vital Sign Reading Time Taken Comments Blood Pressure 120/63 04/13/2024 10:51 AM QA INTERNSHIP Pulse 72 04/13/2024 10:51 AM QA INTERNSHIP Temperature 36 C (96.8 F) 04/13/2024 10:51 AM QA INTERNSHIP Respiratory Rate 16 04/13/2024 10:51 AM QA INTERNSHIP Oxygen Saturation 100% 04/13/2024 10:51 AM QA INTERNSHIP Inhaled Oxygen Concentration - - Weight 90.7 kg (200 lb) 03/30/2024 1:00 PM QA INTERNSHIP Height 149.9 cm (4' 11) 03/30/2024 1:00 PM QA INTERNSHIP Body Mass Index 40.4 03/30/2024 1:00 PM QA INTERNSHIP Plan of Treatment Health Maintenance Due Date Last Done Comments Hepatitis C Virus (HCV) Screening 1966 TdaP Immunization 1966 Hepatitis B Immunization (1 of 3 - 19+ 3-dose series) 1985 Pap Smear 1987 Cervical Cancer Screening (CCS) 02/13/1996 HPV/Cotest 02/13/1996 Cologuard 2011 Immunochemical Fecal Occult Blood 2011 Mammogram 09/28/2014 09/28/2013 Zoster Immunization (1 of 2) 02/13/2016 SARS-COV-2 Immunization ( - season) 2024 Colorectal Cancer Screening 04/14/2024 Influenza Immunization (#1) 01/17/202503/19, 05/02/2022, 05/06/2021 Colonoscopy 04/13/2034 04/13/2024, 01/07/2019 Respiratory Syncytial Virus (RSV) Immunization (Adult) (1 - 1-dose 75+ series) 2041 Pneumococcal Immunization (5 0+ years) Completed 05/02/2022 Pneumococcal Immunization Combined Discontinued 05/02/2022 Human Papillomavirus (HPV) Immunization Aged Out No longer eligible based on patient's age to complete this topic Meningococcal Immunization (ACWY) Aged Out No longer eligible based on patient's age to complete this topic Rotavirus Immunization Aged Out No lo nger eligible based on patient's age to complete this topic Procedures Procedure Name Priority Date/Time Associated Diagnosis Comments HM COLONOSCOPY Routine 01/07/2019 10:00 AM CDT from Last 3 Months or Most Recently Relevant to Health Maintenance Insurance MEDICAID [facility]ETNA [facility] Care Teams Educational Recruiter Relationship Specialty Start Date End Date Edvin Burk MD [address] [place] [address] PCP - General Family Medicine 11/10/18
--- OUTSIDE RECORDS SUMMARY | 2024-12-10 10:34 | XMS_ITS | Clinical Summary ---
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 Gender Identity Not on file Sexual Orientation Not on file Plan of Treatment Health Maintenance Due Date Last Done Comments DTAP/TDAP/TD VACCINES (1 - Tdap) 1985 HEPATITIS B VACCINES (1 of 3 - 19+ 3-dose series) 01/18 HPV/Cotest (21-29) 1987 CERVICAL CANCER SCREENING 02/13/1996 HPV/Cotest (30-65) 02/13/1996 PAP SMEAR 02/13/1996 BREAST CANCER SCREENING 2006 COLORECTAL SCREENING 2011 Colorectal Cancer Screening 2011 FIT-DNA Q 3 years 2011 FIT/FOBT Q 1 year 2011 Flex Sig/CT Colonography Q 5 years 2011 ZOSTER VACCINE (1 of 2) 02/13/2016 INFLUENZA VACCINE (#1) 2024 Care Teams Cost Accountant Relationship Specialty Start Date End Date Wayne Smiley MD NO ADDRESS ON FILE PCP - General 06/14/03
--- OUTSIDE RECORDS SUMMARY | 2024-12-10 10:34 | XMS_ITS | Encounter Summary ---
Author Organization [facility] Address 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 Gender Identity Not on file Sexual Orientation Not on file documented as of this encounter Plan of Treatment Not on file documented as of this encounter Procedures Procedure Name Priority Date/Time Associated Diagnosis Comments URINALYSIS WITH REFLEX CULTURE Stat 03/14/2008 11:16 PM CDT CBC WITH DIFFERENTIAL Stat 03/14/2008 11:16 PM CDT URINALYSIS W/REFLEX MICROSCOPIC Stat 03/14/2008 11:16 PM CDT COMPREHENSIVE METABOLIC PANEL Stat 03/14/2008 11:16 PM CDT documented in this encounter Results * URINALYSIS (03/14/2008 11:16 PM CDT) NITRITE UA Negative Negative [facility] UROBILINOGEN UA <1 <=1 mg/dL [facility] PH UA 6.5 5.0 - 8.0 [facility] KETONES UA Negative Negative [facility] CLARITY UA Clear Clear [facility] PROTEIN UA Negative Negative [facility] BILIRUBIN UA Negative Negative [facility] LEUKOCYTE ESTERASE UA Negative Negative [facility] SPECIFIC GRAVITY UA 1.019 1.001 - 1.035 [facility] BLOOD UA Negative Negative [facility] GLUCOSE UA Negative Negative [facility] COLOR UA Yellow [facility] 03/14/2008 11:1 6 PM CDT 03/14/2008 11:18 PM CDT us Patrick Villavicencio MD URINE ORDERABLES Final Result INTERFACE SYSTEM Refer to clinic/hospital department [facility] CLIA# [id number] [address] [place] [address] * COMPREHENSIVE METABOLIC PANEL (03/14/2008 11:16 PM CDT) SODIUM 140 135 - 145 mmol/L [facility] ALT 14 0 - 31 U/L [facility] ALKALINE PHOSPHATASE 42 35 - 104 U/L [facility] BILIRUBIN TOTAL 0.2 0.2 - 1.0 mg/dL [facility] CO2 26 22 - 30 mmol/L [facility] TOTAL PROTEIN 7.0 6.3 - 8.6 g/dL [facility] POTASSIUM 4.4 3.5 - 4.9 mmol/L [facility] GLUCOSE 80 65 - 99 mg/dL [facility] AST 21 12 - 32 U/L [facility] BUN 16 6 - 20 mg/dL [facility] CALCIUM 8.9 8.6 - 10.2 mg/dL [facility] CHLORIDE 107 96 - 108 mmol/L [facility] ALBUMIN 4.2 3.4 - 4.8 g/dL [facility] CREATININE 0.83 0.51 - 0.95 mg/dL [facility] GFR, >60 >=60 mL/min/1.7 sq meter [facility] GFR >60 >=60 mL/min/1.7 sq meter [facility] Comment: Modification of Diet in Renal Disease (MDRD) study formula. Estimated GFR rate interpretative information for both Americans and non- Americans is available on the [facility] Intranet at: [email or web address] Select: Lab Policies and Procedures Select: Reference Ranges - GFR Blood specimen (specimen) 03/14/2008 11:16 PM CDT 03/14/2008 11:32 PM CDT Patrick Villavicencio MD CHEMISTRY ORDERABLES Edited INTERFACE SYSTEM Refer to clinic/hospital department [facility] CLIA# [id number] [address] [place] [address] * (ABNORMAL) CBC WITH DIFFERENTIAL (03/14/2008 11:16 PM CDT) MCV 92.0 82.0 - 99.0 fL [facility] PLATELETS 222 140 - 350 K/uL [facility] HEMOGLOBIN 13.6 11.8 - 14.8 g/dL [facility] RDW 13.4 11.5 - 14.5 % [facility] WBC 7.6 4.0 - 9.8 K/uL [facility] MCH 30.4 27.2 - 32.6 pg [facility] MPV 10.6 9.3 - 12.4 fL [facility] HEMATOCRIT 41.2 35.5 - 44.0 % [facility] RDW-STDEV 44.5 37.1 - 48.7 fL [facility] RBC 4.48 3.90 - 4.90 M/uL [facility] MCHC 33.0 31.5 - 35.5 % [facility] NEUTROPHILS 47 45 - 70 % [facility] NEUTROPHIL ABSOLUTE 3.59 1.90 - 7.00 K/uL [facility] EOSINOPHILS 10(H) 0 - 7 % [facility] EOSINOPHIL ABSOLUTE 0.78(H) 0.00 - 0.70 K/uL [facility] LYMPHOCYTES 36 16 - 45 % [facility] LYMPHOCYTE ABSOLUTE 2.74 0.70 - 4.50 K/uL [facility] BASOPHILS 0 0 - 2 % [facility] BASOPHILS ABSOLUTE 0.03 0.00 - 0.20 K/uL [facility] MONOCYTES 6 3 - 13 % [facility] MONOCYTE ABSOLUTE 0.49 0.10 - 1.30 K/uL [facility] Blood specimen (specimen) 03/14/2008 11:16 PM CDT 03/14/2008 11:32 PM CDT Patrick Villavicencio MD HEMATOLOGY ORDERABLES Edited INTERFACE SYSTEM Refer to clinic/hospital department [facility] CLIA# [id number] [address] [place] [address] * URINALYSIS WITH REFLEX CULTURE (03/14/2008 11:16 PM CDT) URINE CULTURE ORDER Not indicated [facility] Comment: Criteria for a reflex culture include one or more of the following: Abnormal nitrite, leukocyte esterase, WBCs or RBCs. Lack of qualifying criteria does not exclude the possiblity of a urinary tract infection. Dilute urine, drug interference, etc. may decrease the sensitivity of the criteria analytes. Urine specimen (specimen) 03/14/2008 11:16 PM CDT 03/14/2008 11:18 PM CDT us Patrick Villavicencio MD URINE ORDERABLES Final Result Performing Organization Address City/State/[facility] Co de Phone Number INTERFACE SYSTEM Refer to clinic/hospital department [facility] CLIA# [id number] [address] [place] [place] [address] documented in this encounter Visit Diagnoses Not on filedocumented in this encounter Care Teams Space Technologist Relationship Specialty Start Date End Date Wayne Smiley MD NO ADDRESS ON FILE PCP - General 06/14/03 documented as of this encounter
--- OUTSIDE RECORDS SUMMARY | 2024-12-10 10:34 | XMS_ITS | Patient Health Record ---
Author Organization [facility] Address [address] [address] [facility] [address] [place] [address] Care Team Providers Care Circuit Manager Name Role Phone Antonio Desir Unavailable [phone] Allergies Allergen (clinical drug ingredient) Drug/Non Drug Allergy documented on EMR Reaction Allergy Type Onset Date Status erythromycin Erythromycin Unknown Drug Allergy A ctive fentanyl Fentanyl Unknown Drug Allergy Active Penicillin Unknown Drug Allergy Active Reason For Referral No Information Social History Social History Tobacco Use: Social Info Question Answer Notes Smoking History Are you a tobacco smoker / vaper? nons moker Are you an other tobacco user? No Problems Problem Type SNOMED Code ICD Code Onset Dates Problem Status W/U Status Risk Notes Problem Body mass index 40+ - severely obese (650078387) Adult BMI 40.0-44.9 kg/sq m (Z68.41) Active confirmed Problem Menopausal state (503748008) Menopausal state (N95.1) Active confirmed Problem Vitamin D deficiency (38443788) Low vitamin D level (E55.9) Active confirmed Problem Depression (60394226) Depression (F32.9) Active confirmed Vital Signs Height-cm 149.86 cm 03/23/2024 Blood pressure diastolic 80 mm Hg 03/23/2024 Weight-kg 91.17 kg 03/23/2024 Height 59 in 03/23/2024 Blood pressure systolic 126 mm Hg 03/23/2024 Weight 201 lbs 03/23/2024 BMI 40.59 kg/m2 03/23/2024 Encounters Encounter Location Date Provider Diagnosis [facility] - Antonio Desir [address] [address] [place] [address] 03/23/2024 Antonio Desir Abnormal gynecologic al examination Z01.411 ; Depression F32.9 ; Adult BMI 40.0-44.9 kg/sq m Z68.41 ; Axillary mass, right R22.31 ; Low vitamin D level E55.9 ; Menopausal state N95.1 and Colon cancer screening Z12.11 Assessments Encounter Date Diagnosis (ICD Code) Assessment Notes Treatment Notes Treatment Clinical Notes Section Notes 03/23/2024 Depression (ICD-10 - F32.9) CONTINUE PRISTIQ 50 MG PO IN AM W/FOOD 03/23/2024 Abnormal gynecological examination (ICD-10 - Z01.411) PAP IS DONE [facility] [id number] COLONOSCOPY PENDING BMD ORDERED 03/23/2024 Adult BMI 40.0-44.9 kg/sq m (ICD-10 - Z68.41) CHECK HBA1C REDUCE CALORIC AND SIMPLE CARB INTAKE INCREASE H2O & FRESH FRUIT/VEGETABLE INTAKE RX: PHENTERMINE 37.5 MG PO OD IN AM TOPIRAMATE 50 MG PO BID 03/23/2024 Axillary mass, right (ICD-10 - R22.31) TO SEE DR DAVIS- WASTE MANAGEMENT SPECIALIST 03/23/2024 Low vitamin D level (ICD-10 - E55.9) VIT D3 50 K IU PO PC PER WEEK 03/23/2024 Menopausal state (ICD-10 - N95.1) OBTAIN BMD [facility] WNL 12/0903/23/2024 Colon cancer screening (ICD-10 - Z12.11) FECAL IMMUNE TEST IS NEGATIVE Plan Of Treatment No Information Insurance Providers Payer Name Payer Address Payer Phone Subscriber Number Group Number Insured Name Patient Relationship to Insured Coverage Start Date Coverage End Date [employer] [address] [address] [place], [place] [id number] [phone] [id number] Bobbi Weber Self - patient is the insured Medical (General) History Medical History History ICD Code Surgical History Surgery Date(Month/Year) HYSTERECTOMY
--- OUTSIDE RECORDS SUMMARY | 2024-12-10 10:34 | XMS_ITS | Clinical Summary ---
Author Organization [facility] Address [address] [place] [address] Care Team Providers Care Ore Miner Name Role Phone Unavailable Primary Care Provider Unavailabl e Source Comments [facility],non-owned Affiliates and Associated Physician Practices is amultiple site organization consisting of ambulatory clinics and hospital sitesin [place], [place], [place] and [place]. This disclosure is being madepursuant to the Care Everywhere program and may not contain all information available regarding this patient. 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 Gender Identity Not on file Sexual Orientation Not on file Plan of Treatment Health Maintenance Due Date Last Done Comments COLOGUARD (AGES 45-75) - COL ON CA SCREENING 1966 COLON MONITORING 1966 COLONOSCOPY - COLON CA SCREENING 1966 CT COLONOGRAPHY - COLON CA SCREENING 1966 Colorectal Cancer Screening 1966 FIT - COLON CA SCREENING 1966 FLEX SIG - COLON CA SCREENING 1966 LIPID TESTING 1966 HIV SCREENING 1981 HEPATITIS C SCREENING 02/08/1984 DTAP/TDAP/TD VACCINES (1 - Tdap) 1985 HEPATITIS B VACCINE (1 of 3 - 19+ 3-dose series) 1985 MAMMOGRAM 09/29/2015 09/28/2013 PNEUMOCOCCAL VACCINE 50+ (1 of 1 - PCV) 02/13/2016 ZOSTER VACCINE (1 of 2) 02/13/2016 COVID-19 VACCINE ( - 2023-2 5 season) 2024 DEPRESSION SCREENING 05/19/2024 INFLUENZA VACCINE (#1) 2025 HIB VACCINE Aged Out No longer eligi ble based on patient's age to complete this topic HPV VACCINE Aged Out No longer eligi ble based on patient's age to complete this topic MENINGOCOCCAL (Group B) VACC INE SHARED DECISION-MAKING Aged Out No longer eligibl e based on patient's age to complete this topic MENINGOCOCCAL GROUPS A/C/Y/W VACCINE Aged Out No longer eligible b ased on patient's age to complete this topic Procedures Procedure Name Priority Date/Time Associated Diagnosis Comments MAMMO BILAT SCREENING Routine 09/28/2013 4:15 PM CDT Other screening mammogram from Last 3 Months or Most Recently Relevant to Health Maintenance Results * MAMMO SCREENING DIGITAL IMAGE BILAT [id number] (09/28/2013 4:15 PM CDT) Anatomical Region Laterality Modality Breast Bilateral Mammography 09/28/2013 4:23 PM CDT Narrative 09/28/2013 4:24 PM CDT MAMMOGRAMS SCREENING BILATERAL WITH CAD CORRELATION DATE: 09/28/2013 12:00 AM PREVIOUS EXAM DATE: None HISTORY: Screening TECHNIQUE: Bilateral breast CC and MLO views. These images were interpreted with the aid of CAD. TECHNOLOGIST: RT Crystal (R)(M) TISSUE DENSITY: Heterogeneously Dense. This may lower the sensitivity of mammography. Please correlate with physical examination. FINDINGS: There is no dominant mass, skin thickening or tumor calcification complex ASSESSMENT: BI-RADS 1: Negative. RECOMMENDATIONS: Continued annual screening mammography The above findings should be correlated with physical examination. A relatively nonspecific study should not preclude additional evaluation if suspicious findings are present clinically. An [employer] certified facility. [facility] Breast Centers utilize [facility] as a reminder system to notify patients of their next recommended mammograms. Procedure Note Cole Salazar MD - 09/28/2013 MAMMOGRAMS SCREENING BILATERAL WITH CAD CORRELATION DATE: 09/28/2013 12:00 AM PREVIOUS EXAM DATE: None HISTORY: Screening TECHNIQUE: Bilateral breast CC and MLO views. These images were interpreted with the aid of CAD. TECHNOLOGIST: RT Crystal (R)(M) TISSUE DENSITY: Heterogeneously Dense. This may lower the sensitivity of mammography. Please correlate with physical examination. FINDINGS: There is no dominant mass, skin thickening or tumor calcification complex ASSESSMENT: BI-RADS 1: Negative. RECOMMENDATIONS: Continued annual screening mammography The above findings should be correlated with physical examination. A relatively nonspecific study should not preclude additional evaluation if suspicious findings are present clinically. An [employer] certified facility. [facility] Breast Centers utilize [facility] as a reminder system to notify patients of their next recommended mammograms. Antonio Desir MD MAMMO ORDERABLES Final Result from Last 3 Months or Most Recently Relevant to Health Maintenance Insurance [facility] [place]ICA[facility] [place]
--- OUTSIDE RECORDS SUMMARY | 2024-12-10 10:34 | XMS_ITS | Encounter Summary ---
Author Organization [employer] [facility] Address 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
--- OUTSIDE RECORDS SUMMARY | 2024-12-10 10:34 | XMS_ITS ---
Author Organization [facility] Address [address] [address] Care Team Providers Care Elementary Substitute Teacher Name Role Phone Antonio Desir Unavailable [phone] REASON FOR VISIT annual Encounters Encounter Location Date Provider Diagnosis zzzz do not use [facility] [employer] [address] [place], [place] [id number] 02/17/2024 Antonio Desir Plan Of Treatment No Information Progress Notes * Bobbi WEBERDOB:1965 (59 yo F)Acc No.[id number]:02/17/2024 Progress Notes Patient: Bobbi Carey Provider: Aron Desir MD :1965 A ge:59 Y S ex:Female Date:02/17/2024 [facility] Subjective: * Chief Complaints: * A nnual * Electronic signature of Rishi Desir MD on 12/10/2024 at 10:34 AM CDT Sign off status: Pending * Provider: Aron Desir MD Date: 1 Generated for Jaguar lang/Dc/eTransmitting on: 0 12/10/2024 10:34 AM CDT
== END 2024-12-10 10:28 | disposition home or self-care (01) ==
LOC: ANHIMG 10:31
PROVIDERS: PCP Family Medicine
DX: Z78.0 Asymptomatic menopausal state (principal); M85.851 Other specified disorders of bone density and structure, right thigh
CPT/HCPCS: 77080

== ENCOUNTER 2025-02-08 15:49 | Outpatient (CLI) | payer MEDICARE, MEDICAID, SELFPAY ==
--- NOTE | ~2025-02-08 | CT_ITS ---
EXAMINATION: CT sinus wo con DATE: 02/08/2025 16:03 INDICATION: Hypertrophy of the nasal terminates TECHNIQUE: Computed tomography (CT) of the paranasal sinuses was performed without intravenous contrast. The dose-length product was 295.93 mGy-cm. Automated exposure control and iterative reconstruction technique were employed. COMPARISON: None FINDINGS: There is no significant mucosal thickening. No air-fluid levels. No mucoperiosteal reaction. Mastoids are pneumatized. No significant nasal septal deviation. Nasal turbinates are symmetric. IMPRESSION: 1. No significant sinus disease. Reviewed, dictated and finalized at location O.
== END 2025-02-08 15:50 | disposition home or self-care (01) ==
LOC: MICIMG 15:51
PROVIDERS: PCP Family Medicine
DX: J34.3 Hypertrophy of nasal turbinates (principal)
CPT/HCPCS: 70486

== ENCOUNTER 2025-02-24 14:53 | Outpatient (CLI) | payer MEDICARE, MEDICAID, SELFPAY ==
--- NOTE | ~2025-02-24 | XR_ITS ---
EXAMINATION: XR knee RT min 4V, 02/24/2025 15:20 CDT HISTORY: Acute pain of left and right knee COMPARISON: No comparisons available. Findings: No acute fracture or malalignment. Moderate to severe tricompartmental degenerative changes, small effusion Soft tissues unremarkable. Impression: No acute fracture or malalignment. Reviewed, dictated and finalized at location P. Impression: No acute fracture or malalignment.
--- NOTE | ~2025-02-24 | XR_ITS ---
EXAMINATION: XR knee LT min 4V, 02/24/2025 15:20 CDT HISTORY: Acute pain of left and right knee COMPARISON: No comparisons available. Findings: No acute fracture or malalignment. Prosthesis intact Soft tissues unremarkable. Impression: No acute fracture or malalignment. Reviewed, dictated and finalized at location P. Impression: No acute fracture or malalignment.
== END 2025-02-24 14:54 | disposition home or self-care (01) ==
LOC: MICIMG 14:55
PROVIDERS: PCP Family Medicine; Visit Provider Physical Medicine & Rehabilitation Pain Medicine
DX: M17.11 Unilateral primary osteoarthritis, right knee (principal); M25.461 Effusion, right knee; M25.562 Pain in left knee
CPT/HCPCS: 73564

== ENCOUNTER 2025-02-24 14:58 | Outpatient (CLI) | payer MEDICARE, MEDICAID, SELFPAY ==
--- NOTE | ~2025-02-24 | XR_ITS ---
EXAMINATION: XR chest 2V, 02/24/2025 15:34 CDT HISTORY: Cough, wheezing COMPARISON: No comparisons available. Technique: 2 views obtained. Findings: Small basilar infiltrates No pneumothorax. Heart is normal size. Mediastinal and hilar contours are within normal limits. Bony thorax no acute abnormality. Impression: Early bilateral pneumonia Reviewed, dictated and finalized at location P. Impression: Early bilateral pneumonia
== END 2025-02-24 14:59 | disposition home or self-care (01) ==
LOC: MICIMG 15:00
PROVIDERS: PCP Family Medicine; Visit Provider Nurse Practitioner Family
DX: J18.9 Pneumonia, unspecified organism (principal)
CPT/HCPCS: 71046

== ENCOUNTER 2025-03-15 16:00 | Outpatient (CLI) | payer MEDICARE, MEDICAID, SELFPAY ==
--- NOTE | ~2025-03-15 | MR_ITS ---
EXAMINATION: MR lumbar spine wo/w con DATE: 03/15/2025 16:36 INDICATION: Chronic low back pain. TECHNIQUE: Magnetic resonance imaging (MRI) of the lumbar spine was performed without and with 15 mL MultiHance intravenous contrast. COMPARISON: None FINDINGS: There is 8 degrees dextrocurvature of lumbar spine. There is 3 mm retrolisthesis of L2 on L3 and L3 on 4. Vertebral body heights are normal. There is moderately decreased disc height at L1-L2 and L2-L3, severely decreased disc height at L3-L4, and moderately decreased disc height at L4-L5. The distal spinal cord signal intensity is normal. The conus medullaris is at L2. The following disc levels are specifically discussed: L1-L2: The disc is bulging. There is mild bilateral facet joint osteoarthritis. There is mild bilateral neural foraminal stenosis. There is mild central canal stenosis. L2-L3: The disc is bulging and has an annular fissure. There is mild bilateral facet joint osteoarthritis. There is mild bilateral neural foraminal stenosis. There is mild central canal stenosis. L3-L4: The disc is bulging and has an annular fissure. There is moderate bilateral facet joint osteoarthritis. There is mild bilateral neural foraminal stenosis. There is mild central canal stenosis. L4-L5: The disc is bulging and has an annular fissure. There is severe bilateral facet joint osteoarthritis. There is mild bilateral neural foraminal stenosis. There is mild central canal stenosis. L5-S1: The disc is bulging and has an annular fissure. There is severe bilateral facet joint osteoarthritis. There is mild bilateral neural foraminal stenosis. There is mild central canal stenosis. IMPRESSION: 1. Moderate lumbar spondylosis. Reviewed, dictated and finalized at location E.
== END 2025-03-15 16:01 | disposition home or self-care (01) ==
LOC: MICIMG 16:01
PROVIDERS: PCP Family Medicine; Visit Provider Physical Medicine & Rehabilitation Pain Medicine
DX: M47.26 Other spondylosis with radiculopathy, lumbar region (principal)
CPT/HCPCS: 72158; A9577